=== PATIENT | female | born 1930 | race Caucasian/White ===

== ENCOUNTER 2016-04-04 10:21 | Inpatient (IN) | payer MEDICARE ==
[2016-04-04] VITALS (8 sets, daily range): BP systolic 128–205; BP diastolic 79–127; PULSE 82–113; RESP 18–24; O2SAT 95–100
[~2016-04-04] VITALS: Ht 167.6 cm; Wt 70.2 kg
--- NOTE | 2016-04-04 10:30 | ED.REPORT ---
HPI-General Illness Date of Service Apr 04, 2016 ED Provider: Gilson Noriega MD Pt is an 85 y/o female w/ a hx of acute intermittent porphyria presenting to the ED c/o gradually worsening SOB for 2 weeks. She had cold-like symptoms 6 weeks ago which including cough and SOB. She noticed some "abdominal convulsions " last night which she does not equate to pain. She c/o associated dyspnea on exertion, generalized weakness, hot/cold flashes, nausea. She denies fever, chills, vomiting, chest pain, rash, edema of lower extremity, abnormally colored urine. None of her symptoms today are similar to her episodes of acute intermittent porphyria. She takes no medications on a regular basis. She is a former smoker and has no formal diagnosis of COPD. Nursing Notes Stated Complaint: TROUBLE BREATHING Chief Complaint: Respiratory Distress Nursing Notes Reviewed: Yes Allergies: Coded Allergies: Barbiturates (Verified Allergy, Unknown, 04/04/16) No Active Prescriptions or Reported Meds General Time Seen by MD: 10:28 Chief Complaint Other (SOB) Hx Obtained From: Patient Arrived By: Walk-in Onset Occurred: More than a week ago... (6 wk) Symptom Duration: Since onset Severity: Current: No pain currently Severity: Maximum: No pain Similar Sx Previous: No Past Medical History Past Medical History Acute intermittent porphyria Takes no medications Past Surgical History None reported Smoking History Former Smoker Social History Drug Use: Denies drug use Ambulatory Status Independent Review of Systems Full Review of Systems Constitutional: Reports: Weakness - generalized, Denies: Chills, Fever Respiratory: Reports: Dyspnea on exertion, Shortness of breath, Denies: Non-productive cough Cardiovascular: Denies: Chest pain, Edema GI: Reports: Nausea, Denies: Abdominal pain, Vomiting Female: Denies: Hematuria Endocrine: Reports: Cold intolerance, Heat intolerance Skin: Denies Rash Complete sys rev & neg: except as marked. Physical Exam Vital Signs Vital Signs Date Time Temp Pulse Resp B/P Pulse Ox O2 Delivery O2 Flow Rate FiO2 04/04/16 13:19 88 24 162/94 96 Room Air 04/04/16 10:49 113 100 04/04/16 10:27 36.0 20 205/127 Initial VS: Reviewed, Vital signs abnormal Head / Eyes: Atraumatic, Normocephalic, PERRL ENT: Mucous membranes moist, Conjunctiva normal, No scleral icterus Neck: Supple, Full range of motion Extremities: Vascular intact, Neuro intact, No swelling, No tenderness Skin: Warm, Dry, No cyanosis Neurologic: Alert, Oriented, Nonfocal Psychiatric: Mood/affect normal, Behavior normal, Normal thought content General/Constitutional: Awake, Alert, No acute distress, Cooperative, Not toxic appearing Respiratory / Chest: Atraumatic, Breath sounds = bilat, No respiratory distress , No retractions Lung sound slightly coarse bilaterally Cardiovascular: Heart rate NL, Regular rhythm, Heart sounds NL, No gallop, No murmurs, No rubs, Cap refill not delayed, Peripheral circulation NL Abdomen: Atraumatic, Soft, No guarding, No rebound, No distention, No palpable mass Very mild diffuse tenderness Interpretation & Diagnostics Lab Results Interpretation Result Diagram: 04/04/16 1038 04/04/16 1038 Test 04/04/16 10:38 04/04/16 13:00 04/04/16 13:14 White Blood Count 11.5th/mm3 (3.8-10.1) Red Blood Count 4.42mil/mm3 (3.90-5.20) Hemoglobin 12.3g/dL (12.0-15.6) Hematocrit 39.0% (35.0-46.0) Mean Corpuscular Volume 88.2fL (81-100) Mean Corpuscular Hemoglobin 27.8pg (27.0-35.0) Mean Corpuscular Hemoglobin Concent 31.5% (32.0-37.0) Red Cell Distribution Width 14.7% (12.3-15.4) Platelet Count 261bil/L (150-400) Neutrophils (%) (Auto) 81.5% (40-74) Lymphocytes (%) (Auto) 12.0% (14-46) Monocytes (%) (Auto) 6.0% (4-12) Eosinophils (%) (Auto) 0.1% (0-5) Basophils (%) (Auto) 0.3% (0-3) Prothrombin Time 10.8sec (8.1-12.5) Prothromb Time International Ratio 1.01ratio Sodium Level 140mEq/L (134-144) Potassium Level 4.4mEq/L (3.5-5.2) Chloride Level 104mEq/L (97-108) Carbon Dioxide Level 18mmol/L (18-29) Blood Urea Nitrogen 31mg/dL (8-27) Creatinine 0.87mg/dL (0.57-1.00) Estimat Glomerular Filtration Rate 88mL/min (>59) Glucose Level 146mg/dL (60-99) Calcium Level 8.8mg/dL (8.5-10.1) Magnesium Level 1.9mg/dL (1.6-2.6) Total Bilirubin 0.6mg/dL (0.0-1.2) Aspartate Amino Transf (AST/SGOT) 20U/L (0-50) Alanine Aminotransferase (ALT/SGPT) 11U/L (0-32) Alkaline Phosphatase 81U/L (25-165) Troponin T 0.017ug/L (0.0-0.011) Pro-B-Type Natriuretic Peptide 3114pg/mL (0-738) Total Protein 7.8g/dL (6.4-8.4) Albumin 3.6g/dL (3.4-5.0) Urine Legionella pneumophilia Ag Negative (Negative) Urine Color Straw (YELLOW) Urine Appearance Hazy (CLEAR,HAZY) Urine pH 5.5 (5.0-8.0) Urine Specific [place] 1.030 (1.003-1.035) Urine Protein Tracemg/dL (NEG,TRACE) Urine Glucose (UA) Negativemg/dL (NEGATIVE) Urine Ketones Tracemg/dL (NEGATIVE) Urine Occult Blood Trace (NEGATIVE) Urine Nitrite Negative (NEGATIVE) Urine Bilirubin Negative (NEGATIVE) Urine Urobilinogen Normalmg/dL (NORMAL) Urine Leukocyte Esterase Moderate (NEGATIVE) Urine RBC 0-2/hpf (0-2) Urine WBC 0-5/hpf (0-5) Urine Epithelial Cells Occasional/hpf (NONE-MOD) Urine Crystals None seen (NONE SEEN) Urine Bacteria Few/hpf (NONE-FEW) Urine Hyaline Casts None/lpf (NONE) Urine Granular Casts Occasional (NONE SEEN) Urine Waxy Casts None seen (NONE SEEN) Urine Red Blood Cell Casts None seen (NONE SEEN) Urine White Blood Cell Casts None seen (NONE SEEN) Urine Mucus Present (None Seen) Urine Trichomonas None seen (NONE SEEN) Urine Yeast None (NONE SEEN) Urinalysis Comment None Urine Culture Reflexed Indicated ECG Interpretation ECG Interpretation: Sinus rhythm rate 97 Occasional PACs No prior for comparison Time: 11:35 Interpreted by: ED physician Normal ECG Interpretation: Normal sinus rhythm, No acute ischemic changes, Normal axis, Normal intervals X-Ray Chest Interpretation Chest Xray Interpretation: IMPRESSION: Mild atypical pneumonia. Dictated by: Lew Ghotra M.D. on 04/04/2016 at 11:38 Approved by: Lew Ghotra M.D. on 04/04/2016 at 11:38 View: Portable, AP & lat Interpretation / Wet Read by: Interpret - Radiologist Re-Eval/Medical Decision Med Decision/Clinical Course Pt is an 85 y/o female w/ a hx of acute intermittent porphyria presenting to the ED c/o gradually worsening SOB for 2 weeks. She had cold-like symptoms 6 weeks ago which including cough and SOB. She noticed some "abdominal convulsions " last night which she does not equate to pain. She c/o associated dyspnea on exertion, generalized weakness, hot/cold flashes, nausea. She has most recently noticed some dark colored urine. Upon arrival she is afebrile with stable vital signs and examination as above. Meds given: IV fluids, Zofran Labs notable as below: CBC: Leukocytosis of 11.5, stable HCT CMP: BNP of 3114, BUN of 31 and creatinine of 0.87 Troponin: mildly elevated at 0.017 UA positive for: leukocytes, nitrites, ketones, trace blood Chest x-ray: possible mild atypical pneumonia per radiology assessment though in my assessment I am unconvinced of pneumonia given the overall clinical picture. Overall presentation is somewhat atypical and confounding. I am unclear as to the degree to which her acute intermittent porphyria may be a continued factor though she does report that her urine has been darker in color and that her symptoms are somewhat similar to previous exacerbations. Uropoprhobilinogen's have been sent and are pending at this time. Of note troponin was obtained on this patient and is mildly elevated though she does have prerenal azotemia which may explain her elevated troponin. That being said her BNP is additionally elevated raising concern for cardiogenic process as well. At this time, I feel that the patient requires additional workup both for cardiogenic causes of her shortness of breath as well as further workup of possible acute exacerbation of her intermittent porphyria. She was discussed with the medical hospitalist and she was transferred to the [facility] for further workup in stable condition. Time of Eval: 11:46 Patient Status: Condition improved, Moderate relief Re-Evaluation/Progress Note: Pt rechecked. Pt informed of need for admission for further cardiac workup. Pt understands and agrees with plan for admission. All questions addressed. Counseled Regarding: Diagnosis, Lab results, Need for admission Discharge & Departure Primary Impression: Elevated troponin Additional Impressions: Shortness of breath Acute intermittent porphyria Elevated brain natriuretic peptide (BNP) level Disposition: ADMITTED TO HOSPITAL Discharge Condition All VS Reviewed: Yes Condition: Stable Referrals: [facility] Scribe Attestation Portions of this note were transcribed by Marvin Daugherty. I, Dr. Noriega personally performed the history, physical exam and medical decision-making; I reviewed and confirmed the accuracy of the information in the transcribed note. Signed by Katy Koch, 04/04/16 - 1130 Gilson Noriega MD Apr 04, 2016 10:30 MARVIN DAUGHERTY Apr 04, 2016 10:46
[2016-04-04] MEDS ORDERED: 0.9% Sodium Chloride 1,000 ML IV ONE (10:50)
[2016-04-04 11:03] LABS: BASOPHILS % (AUTO) 0.3 % (0-3); EOSINOPHILS % (AUTO) 0.1 % (0-5); Mean Corpuscular Hemoglobin 27.8 pg (27.0-35.0); Mean Corpuscular Volume 88.2 fL (81-100); NEUTROPHILS % (AUTO) 81.5 % (40-74); Platelet Count 261 bil/L (150-400)
[2016-04-04 11:09] LABS: INR 1.01 ratio
[2016-04-04 11:16] LABS: TROPONIN T 0.017 ug/L (0.0-0.011)
[2016-04-04 11:27] LABS: Magnesium 1.9 mg/dL (1.6-2.6)
--- NOTE | 2016-04-04 11:39 | DRSVH ---
PROCEDURE: X-RAY CHEST, TWO VIEWS ([id number]) INDICATIONS: sob TECHNIQUE: 2 views of the chest were acquired. COMPARISON: None. FINDINGS: Surgical changes and devices: None. Lungs and pleura: No pleural effusions or pneumothorax. Mild patchy diffuse interstitial pulmonary o pacity. Mediastinum: Mediastinal contours are normal. Heart size is normal. Bones and chest wall: No suspicious bony abnormalities. Soft tissues appear unremarkable. IMPRESSION: Mild atypical pneumonia. Dictated by: Lew Ghotra M.D. on 04/04/2016 at 11:38 Approved by: Lew Ghotra M.D. on 04/04/2016 at 11:38
[2016-04-04 13:33] LABS: APPEARANCE,URINE HAZY (CLEAR,HAZY); COLOR,URINE STRAW (YELLOW); OCCULT BLOOD,URINE TRACE (NEGATIVE); PH,URINE 5.5 (5.0-8.0); UROBILINOGEN,URINE NORMAL (NORMAL)
[2016-04-04] MEDS ORDERED: Azithromycin Inj 500 MG in Dextrose 5% w/Vial Mate 250 ML IV ONE (14:05)
[2016-04-04] MEDS ORDERED: levoFLOXacin Inj 750 MG in IV Premix 1 EACH IV ONE (14:20)
[2016-04-04] MEDS ORDERED: 0.9% Sodium Chloride 500 ML IV ONE (14:20)
--- NOTE | 2016-04-04 15:34 | NUR ---
Admit nurse: Pt denies taking any home meds on a regular basis, "I take a vitamin once in a while." Flu shot given in Nov, admit completed. Pt speaking in full sentences, on RA, reports that breathing is more comfortable in a sitting position. Reports "too much milk makes me sick."
[2016-04-04] MEDS ORDERED: Albuterol-Ipratropium 3 mL Inhalation Solution NEB PRN (16:05)
--- NOTE | 2016-04-04 16:28 | PCM.HPMED ---
Subjective Date of Service Apr 04, 2016 Primary Provider: Admitting Physician: Paulo Jackson MD Primary Care Physician: Tai Attending Physician: Paulo Jcakson MD Chief Complaint: Progressive worsening of cough and difficulty breathing History of Present Illness: 85-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 Patient stated that she is living independently, only takes vitamin intermittently. Patient started noticing cold-like symptoms 6 weeks ago, had dry cough badly, which continued intermittently with minimal white sputum. Patient sometimes have nausea but never vomited. Patient thinks that her symptoms gradually got worse and last week, patient started noticing difficulty breathing with cough to the point that last night, patient was really short of breath, noticing her abdomen was up-and-down with labored breathing, noticing cold and hot sensation alternatively, did not take the temperature. Throughout his course, patient did not seek for any medical help, denied weight loss, but gradually became very weak, denied night sweats or fever. Patient stated that last time she had porphyria attack was more than 20 years ago in which she normally had black urine and really severe burning on urination, which was not present at this time. Therefore she did not think that it was Porphyria attack. Patient also had poor appetite, however denied any abdominal pain. For the past 2-3 weeks, he should also have felt lightheaded on sudden movement, denied any fall. In ED VS initially BP 200/127, 113, afebrile, 96 on RA, CXR showed diffuse interstitial infiltrate bilaterally. Labs were notable for mild leukocytosis, mild troponin, elevated proBNP. During the encounter, patient looked comfortable, speaking in full sentences, alert and oriented fully, very pleasant but looked weak. Denied any difficulty breathing, cough or chest pain, palpitation Review of Systems: Pertinent positives as noted in history of present illness. All other systems were reviewed and are negative Allergies Coded Allergies: Barbiturates (Verified Allergy, Unknown, 04/04/16) Home Medications [id number] vitamins intermittently PMH Patient stated that [facility] studied extensively with her and her daughter regarding Porphyria. stated she knows that there are 3 kinds of porphyria, hers was one that nothing to do with sunshine Denied heart murmur Surgical History Cervical cancer status post hysterectomy Breast cancer status post radical mastectomy, LN dissection Appendectomy Family History Daughter also has Porphyria dad of heart attack Mother had brain aneurysm Social History Hx Alcohol Use: No Hx Substance Use: No Smoking Status: Former Smoker Exam Vital Signs Vital Sign - Last Date Time Temp Pulse Resp B/P Pulse Ox O2 Delivery O2 Flow Rate FiO2 04/04/16 15:43 37.0 93 18 163/109 96 Room Air Exam NAD, comfortably laying down on the bed no JVD, MMM, no LAD Tachycardia irregular, nl s1, s2. gr3 ejection systolic M best heard at RUSB Findings crackles diffusely S,ND,NT,normoactive BS+ warm, no edema, pulses 2/2 Lab and Diagnostics Result Diagram: 04/04/16 1038 04/04/16 1038 Assessment & Plan 85-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 Acute, active #dyspnea, POA, ddx: atypical infectious process, interstitial lung dz, malignancy with lymphagetic spread, pt is protecting airways -We will do conventional pectus workups first: BCX, flu swab, strep/legionella Ag, Quantiferon God. -start Levaquin 750mg qd, consider Doxycycline for atypical infection, -will not start steroid yet given no clear clinical picture -ordered TTE given elevated BNP, systolic M, pt seemed mildly dehydrated given poor appetite, exam, bun/cr will only give 500cc today, please decide vol status tomorrow -keep on telemetry, -consider pulmonary, ID consult -consider getting HRCT contrast if renal function stable tomorrow -O2 supplement target >95% #hypertension, POA, likely undiagnosed, will start diltiazem 30 bid given acute lung process, control HR. 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
--- NOTE | 2016-04-04 17:31 | DRSVH ---
[facility] [address] [place] [address] Echocardiogram Report Name: JAYDEN FELIX Study Date: 04/04/2016 Height: 66 in Hospital Exam Location: [facility] Weight: 150 lb Gender: Female BSA: 1.8 m2 : 1930 Age: 85 yrs Reason For Study: SOB Ordering Physician[facility] Interpretation Summary Left ventricular systolic function is normal without focal wall motion abnormalities with the ejection fraction is estimated to be 70-75%. The left ventricle is normal in size with diastolic parameters suggesting a pseudonormalization pattern, consistent with elevated filling pressures. The right ventricle is normal in size and function. There is moderate-severe pulmonary hypertension with the right ventricular systolic pressure estimated at 65 mmHg assuming a right atrial pressure of 3 mm Hg. The left atrium is mildly dilated and the right atrium is borderline dilated. There is moderate mitral annular calcification. The mitral valve leaflets appear mildly thickened, but open well with probable moderate mitral valve prolapse of the posterior mitral valve leaflet producing probable moderately severe to severe mitral regurgitation with an eccentric jet of regurgitation that is directed anteromedially. Consider MADHU to better assess mechanism and severity of mitral regurgitation if clinically appropriate. There is moderate tricuspid regurgitation but no other significant valvular heart disease. The patient was in sinus tachycardia with heart rates between 95-110 bpm and frequent PACs during the exam. Procedure: A two-dimensional transthoracic echocardiogram with color flow and Doppler was performed. The study quality was technically adequate. Imaging artifact noted in the apical views. There is no prior echocardiogram noted for this patient. The patient was in sinus tachycardia with heart rates between 95-110 bpm during the exam. The patient had frequent PACs during the exam. Left Ventricle: The left ventricle is normal in size. There is normal left ventricular wall thickness. Proximal septal thickening is noted. Left ventricular systolic function is normal without focal wall motion abnormalities. The ejection fraction is estimated to be 70-75%. Assessment of diastolic parameters suggests a pseudonormalization pattern, consistent with elevated filling pressures. Right Ventricle: The right ventricle is normal in size and function. TAPSE measures at 26mm. Atria: The left atrium is mildly dilated. The right atrium is borderline dilated. The interatrial septum is intact with no evidence for an atrial septal defect. Interatrial septal thickening is noted. Mitral Valve: There is moderate mitral annular calcification. The mitral valve leaflets appear mildly thickened, but open well. There is moderate mitral valve prolapse. There is prolapse of the posterior mitral valve leaflet(s). MP.7mmHg. There is moderate to severe mitral regurgitation. There is an eccentric jet of mitral regurgitation that is directed anteromedially. Consider MADHU to better assess mechanism and severity of mitral regurgitation if clinically appropriate. Aortic Valve: The aortic valve is trileaflet. There is mild aortic valve sclerosis. The aortic valve is mildly calcified. Leaflet mobility is minimally reduced. There is no hemodynamically significant valvular aortic stenosis. No aortic regurgitation is present. Tricuspid Valve: The tricuspid valve is normal in structure and function. There is moderate tricuspid regurgitation. There is moderate-severe pulmonary hypertension. The right ventricular systolic pressure is estimated at 65 mmHg assuming a right atrial pressure of 3 mm Hg. Pulmonic Valve: The pulmonic valve is normal in structure and function. There is trace pulmonic regurgitation. There is no other significant valvular heart disease. Great Vessels: The aortic root is normal size. The dimensions of the ascending aorta are normal. The pulmonary artery is normal size. The IVC is of normal diameter and collapses greater than 50% with a sniff. This suggests a low right atrial pressure of 3 mm Hg. Pericardium/ Pleura There is no pericardial effusion. There is no pleural effusion. MMode/2D Measurements & Calculations LVIDd: 4.5 cm LA dimension: 4.2 cm RA long axis LVOT diam LVIDs: 2.9 cm FS: 34.7 % LA A2 area: 18.0 cm RA area AoV Opening EPSS: 0.60 cm LA A4 area: 26.1 cm IVSd: 1.2 cm LA length (vol): 5.9 cm: 18.7 cm Ao root diam LVPWd: 0.99 cm LA vol: 68.0 ml RA vol LA vol index : 52.4 ml Aortic Jxn RA : 29.6 mm2 asc Aorta IVC diam: 2.1 cm Diam: 2.9 cm LV modi. diameter/BSA LV sys. diameter/BSA (cm/m^2): 2.5 (cm/m^2): 1.6 Doppler Measurements & Calculations Ao V2 max MV E max christiano MV E/A: 1.3 TR max christiano : 198.5 cm/sec : 163.8 cm/sec Med Peak E' Christiano : 393.0 cm/sec Ao max P.8 mmHg MV A max christiano TR max PG Ao mean P.9 mmHg : 123.7 cm/sec E/E' med: 29.9 : 61.8 mmHg LVOT Max Christiano Pulm A Revs Dur PA V2 max : 119.4 cm/sec MVA(VTI): 1.6 cm2 : 141.8 cm/sec MV A dur PA mean PG REINALDO(I,D): 1.9 cm : 0.15 sec : 2.7 mmHg sev ratio: 0.53 MV V2 mean Ao V2 mean LV V1 max PG PA V2 mean : 107.0 cm/sec : 131.1 cm/sec : 69.3 cm/sec MV mean P.7 mmHg Ao V2 VTI: 37.1 cm LV V1 VTI PA pr(Accel) MV V2 VTI: 44.5 cm REINALDO(V,D): 2.2 cm2 : 19.5 cm : 52.8 mmHg MV dec time: 0.18 sec REINALDO indexed to BSA Pulm A Revs Dur - MV A (cm^2/m^2): 1.1 Dur: -0.02 msec Reading Physician:05:30 PM
--- NOTE | 2016-04-04 19:37 | NUR ---
arrived to [facility]/antibiotics Pt arrived to [facility] room 3007 from ER at 1500. Pt denies pain but reports feeling weak and unsteady and "glad to be at the hospital", SOB with exertion, O2 sats 96% on room air. BC drawn by lab and antibiotics infused per orders. Oriented to room and call light. Call light placed in reach and instructed on use, pt verbalized understanding. Tele placed and SR 93. Pt has hx of R mastectomy, NO BP OR LAB DRAW TO R ARM, posted signs behind bed and on white board and placed arm band on R arm that states no lab draw/BP on R arm. Pt updated on plan of care. Care continues.
[2016-04-04] MEDS: Heparin 5,000 Unit/mL Inj SUBQ SCH (20:44)
[2016-04-05] VITALS (9 sets, daily range): BP systolic 120–166; BP diastolic 80–104; PULSE 80–110; RESP 16–22; O2SAT 91–97
--- NOTE | 2016-04-05 02:48 | NUR ---
mobility patient able to walk to bathroom sba. mild dyspnea. non productive cough. supportive care given.
[2016-04-05] MEDS: levoFLOXacin Inj 750 MG in IV Premix 1 EACH IV SCH (07:53)
[2016-04-05] MEDS: Heparin 5,000 Unit/mL Inj SUBQ SCH ×2 (07:56→21:02)
[2016-04-05 08:17] LABS: Mean Corpuscular Hemoglobin 27.6 pg (27.0-35.0); Mean Corpuscular Volume 88.9 fL (81-100)
[2016-04-05] MEDS ORDERED: DEXTROSE 5% IV SCH (08:30)
[2016-04-05] MEDS ORDERED: MATE IV SCH (08:30)
[2016-04-05] MEDS ORDERED: AZITHROMYCIN IV SCH (08:30)
--- NOTE | 2016-04-05 14:35 | NUR ---
Social Work-initial assessment: Data:See initial assessment. Pt is a 85 y/o female who was admitted on 04/04/16 for elevated trop per H&P. Pt's insurance is [facility] and PCP is Not listed. EMR Reviewed. Pt's readmission score is 1. BRIDGER met with pt at bedside to discuss discuss discharge planning, SW role explained. Pt is alert and oriented x3. Pt resides at home alone in [place] where she remains independent with ADLS. Pt does not use any DME and drives. Pt has no HH or SNF history. Pt has no occupational health professional care or VA benefits. Pt states she has completed DPOA/ advanced directive paperwork, SW encouraged pt to bring a copy into the hospital. Pt has no PCP, interested in information, which BRIDGER has provided. Pt states she feels very weak, SW to discuss PT evaluation with MD. SW provided phone number and plan on the board in room. Pt's grandson to provide transport home. SW will continue to follow. Assessment:Pt who would benefit from PT evaluation. Plan:Pt to likely discharge home when medically stable. Pt to benefit from PT evaluation. SW will continue to follow. AMELIA Hanna Addendum: 04/05/16 at 1439 by ROLAND BARBOUR Amended: Links added.
--- NOTE | 2016-04-05 17:42 | PCM.PNMED ---
Subjective Date of Service Apr 05, 2016 Subjective Patient was examined at bedside today. Patient denies any chest pain, nausea, vomiting, diarrhea. Patient reports shortness of breath and lethargy. Exam Vital Signs Vital Sign - Last Date Time Temp Pulse Resp B/P Pulse Ox O2 Delivery O2 Flow Rate FiO2 04/05/16 16:50 36.9 91 16 145/91 96 Room Air Intake and Output 04/04/16 04/04/16 04/05/16 Cumulative From/Thru 15:00 23:00 07:00 04/04/16 10:27 - 04/05/16 06:03 Intake Total 1000 ml 640 ml 100 ml 1740 ml Output Total 425 ml 425 ml Balance 1000 ml 640 ml -325 ml 1315 ml Intake Oral 100 ml 100 ml IV Total 1000 ml 640 ml 1640 ml Output Urine Total 425 ml 425 ml # Voids 1 1 Exam Physical Exam: GEN: Patient was awake, alert, responding appropriately to questions HEENT: PERRLA, EOMI, Neck soft supple, trachea midline, nomocephalic/atraumatic CV: +S1/S2, RRR, positive systolic murmurs auscultated Respiratory: Coarse breath sounds, no wheezes, rales, rhonchi GI: +bowel sounds x4, soft, compressible, non TTP EXT: no c/c/e Neuro: CN II-XII grossly intact Psych: mood and affect were appropriate IVs and Medications Medications Reviewed: Medications were reviewed in detail Medications Current Medications Heparin Sodium (Porcine) 5000 unit 5,000 unit Q12 SUBQ Last administered on 04/05 07:56; Admin Dose 5,000 UNIT; Start 04/04/16 at 20:30 Azithromycin 250 mg/Dextrose/Water 250 ml @ 250 mls/hr Q24 IV; Start 04/05/16 at 08:30; Stop 04/05/16 at 08:30; Status DC Levofloxacin/ Dextrose/Premix 150 ml @ 100 mls/hr Q24 IV Last administered on 07:53; Admin Dose 100 MLS/HR; Start 04/05/16 at 08:30 Amlodipine Besylate 5 mg DAILY PO; Start 04/05/16 at 08:30; Stop 04/05/16 at 08: 30; Status DC Diltiazem HCl 30 mg BID PO Last administered on 1/28/17at 07:56; Admin Dose 30 MG; Start 04/04/16 at 16:30 Albuterol/ Ipratropium 3 ml Q4H PRN NEB; Start 04/04/16 at 16:05 Lab and Diagnostics Result Diagram: 04/05/16 0810 04/05/16 0810 Assessment & Plan 85-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 Acute, active Dyspnea, POA, ddx: atypical infectious process, interstitial lung dz, malignancy with lymphagetic spread, -We will do conventional pectus workups first: BCX negative 24 hours, flu swab negative, strep/legionella Ag negative, patient is positive for rhinovirus/ enterovirus -Continue Levaquin 750mg qd, patient is currently responding well will consider Doxycycline for atypical infection, if patient's symptoms do not resolve -will not start steroid yet given no clear clinical picture -ordered TTE given elevated BNP results pending, systolic M, pt seemed mildly dehydrated given poor appetite, exam, bun/cr will only give 500cc today, please decide vol status tomorrow -keep on telemetry, -Consult infectious disease -consider getting HRCT contrast if renal function stable tomorrow -O2 supplement target >92% hypertension, POA, likely undiagnosed, -Continue diltiazem 30 bid given acute lung process, control HR. systolic M, likely severe valvular dz in the setting of uncontrolled HTN, follow up with TTE. -Follow up echo chronic, stable #hx of breast CA, cervical CA, remote, seemed in remission dvt ppx: HSQ diet: general dispo: Patient is currently responding well to treatment. We will continue to follow the patient and appreciate any recommendations from infectious disease. Full Code for now, pt never thought about this in the past, VTE Mechanical Devices: Venous Foot Pump Nicolasa Mobley DO Apr 05, 2016 17:42
--- NOTE | 2016-04-05 18:23 | NUR ---
Pain/shift pleasant and compliant pt, able to make needs known. Uses call light appropriately. c/o back pain states it's d/t being in bed. Kpad order recd and applied. pt states it's effective. Pt with dx of Porphyria-MD working on proper pain meds. IV abx infused for pneumonia, pt tolerated it well. ID consult pending. Tele SR 70-90 with PACs. Bed in low position, call light in reach, will continue to monitor.
[2016-04-06] VITALS (10 sets, daily range): BP systolic 107–146; BP diastolic 72–92; PULSE 79–104; RESP 18–21; O2SAT 95–98
--- NOTE | 2016-04-06 05:42 | NUR ---
New onset A-Fib Pt have a new onset of A-fib, now intermittently A-fib to sinus rhythm per monitor moshe. MD was notified and no new orders given. Pt denies chest pain. But complains of very mild sob. Currently on RA and has been tolerating well. Hourly rounding done, bed is in lowest position and call light within reach,
[2016-04-06 05:56] LABS: Mean Corpuscular Hemoglobin 27.9 pg (27.0-35.0); Mean Corpuscular Volume 88.3 fL (81-100)
[2016-04-06 08:22] LABS: Creatine Kinase 66 U/L (21-215)
--- NOTE | 2016-04-06 09:02 | NUR ---
JUAN signed. AMELIA Hanna
[2016-04-06] MEDS: levoFLOXacin Inj 750 MG in IV Premix 1 EACH IV SCH (09:06)
[2016-04-06] MEDS: Heparin 5,000 Unit/mL Inj SUBQ SCH ×2 (09:09→20:31)
[2016-04-06] MEDS ORDERED: levoFLOXacin Inj 250 MG in IV Premix 1 EACH IV SCH (10:55)
--- NOTE | 2016-04-06 15:03 | PCM.PNMED ---
Subjective Date of Service Apr 06, 2016 Subjective Patient was examined at bedside today. Patient denies any chest pain, but states that she does have some feelings of "not right" in her body. Overnight nursing reported that the patient converted from sinus rhythm into A. fib. This is a new onset of A. fib patient. Patient also complains of back pain secondary to deconditioning and also complains of difficulty swallowing. Exam Vital Signs Vital Sign - Last Date Time Temp Pulse Resp B/P Pulse Ox O2 Delivery O2 Flow Rate FiO2 04/06/16 13:48 37.0 85 20 107/72 96 Room Air Intake and Output 04/05/16 04/05/16 04/06/16 Cumulative From/Thru 15:00 23:00 07:00 04/04/16 10:27 - 04/06/16 06:25 Intake Total 756 ml 318 ml 2814 ml Output Total 775 ml 1200 ml Balance 756 ml -457 ml 1614 ml Intake Oral 756 ml 318 ml 1174 ml IV Total 1640 ml Output Urine Total 775 ml 1200 ml # Voids 2 3 # Bowel Movements 0 0 Exam Physical Exam: GEN: Patient was awake, alert, responding appropriately to questions HEENT: PERRLA, EOMI, Neck soft supple, trachea midline, nomocephalic/atraumatic CV: +S1/S2, irregular, positive systolic murmur auscultated Respiratory: CTAB, no wheezes, rales, rhonchi GI: +bowel sounds x4, soft, compressible, non TTP EXT: no c/c/e Neuro: CN II-XII grossly intact Psych: mood and affect were appropriate IVs and Medications Medications Reviewed: Medications were reviewed in detail Medications Current Medications Heparin Sodium (Porcine) 5000 unit 5,000 unit Q12 SUBQ Last administered on 04/06 09:09; Admin Dose 5,000 UNIT; Start 04/04/16 at 20:30 Azithromycin 250 mg/Dextrose/Water 250 ml @ 250 mls/hr Q24 IV; Start 04/05/16 at 08:30; Stop 04/05/16 at 08:30; Status DC Levofloxacin/ Dextrose/Premix 150 ml @ 100 mls/hr Q24 IV Last administered on 09:06; Admin Dose 100 MLS/HR; Start 04/05/16 at 08:30; Stop 04/06/16 at 10:55; Status DC Amlodipine Besylate 5 mg DAILY PO; Start 04/05/16 at 08:30; Stop 04/05/16 at 08: 30; Status DC Diltiazem HCl 30 mg BID PO Last administered on 04/06/16 09:09; Admin Dose 30 MG; Start 04/04/16 at 16:30 Albuterol/ Ipratropium 3 ml 3 ml Q4H PRN NEB; Start 04/04/16 at 16:05 Levofloxacin/ Dextrose/Premix 50 ml @ 33.333 mls/ hr Q24H IV; Start 04/06/16 at 10:55; Stop 04/06/16 at 11:12; Status DC Docusate Sodium 100 mg BID PRN PO Last administered on 04/06/16 11:07; Admin Dose 100 MG; Start 04/06/16 at 11:00 Acetaminophen 650 mg 650 mg Q4H PRN PO Last administered on 04/06/16 11:07; Admin Dose 650 MG; Start 04/06/16 at 11:00 Levofloxacin/ Dextrose/Premix 50 ml @ 33.333 mls/ hr Q24H IV; Start 04/07/16 at 08:30 Lab and Diagnostics Result Diagram: 04/06/16 0535 04/06/16 0535 Assessment & Plan 85-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 Acute, active Dyspnea, POA, ddx: atypical infectious process, interstitial lung dz, malignancy with lymphagetic spread, - BCX negative 24 hours, flu swab negative, strep/legionella Ag negative - patient is positive for rhinovirus/enterovirus -Continue Levaquin 750mg qd, patient is currently responding well will consider Doxycycline for atypical infection, if patient's symptoms do not resolve -will not start steroid yet given no clear clinical picture -keep on telemetry, -Infectious disease consulted -O2 supplement target >92% New-onset atrial fibrillation -Heart rate is currently controlled -Continue diltiazem 30 by mouth twice a day -Consult cardiology Dr. Mello Elevated Troponin's -Patient had an elevated troponin at 0.017 upon admission however it is currently trending down at 0.013. This is most likely a troponin leak in the setting of an elevated creatinine the patient's acute kidney injury is resolving. CK-MB was within normal limits. Elevated blood glucose -Hemoglobin A1c pending Hypertension, POA, likely undiagnosed, -Continue diltiazem 30 bid given acute lung process, control HR. systolic M, likely severe valvular dz in the setting of uncontrolled HTN, follow up with TTE. Echo results: Estimated ejection fraction is 70-75%, left ventricular systolic function is normal without focal wall motion abnormalities, left ord ventricle is normal in size with diastolic parameters suggesting a pseudonormalization pattern consistent with elevated filling pressures. Back pain -Tylenol 650 when necessary pain -Physical therapy consulted -Consider OMT chronic, stable #hx of breast CA, cervical CA, remote, seemed in remission dvt ppx: HSQ diet: general dispo: Patient's infection is currently responding to antibiotic therapy as her white blood cell count is normal at 8.0. We will continue to follow up with infectious disease recommendations. Patient has a new onset of A. fib patient is currently rate controlled will defer to cardiology for further recommendations. VTE Mechanical Devices: Venous Foot Pump Nicolasa Mobley DO Apr 06, 2016 15:03
[2016-04-06 19:34] LABS: Magnesium 1.9 mg/dL (1.6-2.6)
[2016-04-07] VITALS (9 sets, daily range): BP systolic 112–149; BP diastolic 72–102; PULSE 84–105; RESP 18–20; O2SAT 97–99
[2016-04-07 06:03] LABS: Mean Corpuscular Hemoglobin 27.6 pg (27.0-35.0); Mean Corpuscular Volume 87.7 fL (81-100)
--- NOTE | 2016-04-07 06:33 | NUR ---
Uneventful pt denies chest pain, sob, n/v and abd discomfort. Pt is NPO since midnight for stress test. Hourly rounding done, Telemetry A-fib per monitor moshe. Will continue to monitor.
[2016-04-07] MEDS ORDERED: 0.9% Sodium Chloride 250 ML ONE (08:34)
[2016-04-07] MEDS: Heparin 5,000 Unit/mL Inj SUBQ SCH ×2 (08:50→21:22)
[2016-04-07] MEDS: levoFLOXacin Inj 250 MG in IV Premix 1 EACH IV SCH (08:51)
--- NOTE | 2016-04-07 10:04 | CONS ---
[address] [address] CONSULTATION REPORT PATIENT: ARMAND FELIX : 1930 MR#: [id number] ADMIT: 04/04/2016 JOB ID: [id number] DATE OF SERVICE: 04/07/2016 HISTORY OF PRESENT ILLNESS: The patient is a delightful 85-year-old female with a history of porphyria, breast cancer status post radical mastectomy in 1979, cervical cancer status post hysterectomy in 1980. She reported to the emergency department with shortness of breath. Decreased exercise tolerance and weakness. She was hypertensive as well. Labs revealed a mild troponin leak and an elevated BNP. She tells me during the consultation that she has been experiencing exertional chest pain and that she cannot walk to the bathroom in her hospital room without getting short of breath. She also reports to me that prior to this recent episode of shortness of breath and decreased exercise tolerance she had not been to the doctor in about 30 years. PAST MEDICAL HISTORY: 1. Porphyria. 2. Breast cancer in 1979. 3. Cervical cancer in 1980. PAST SURGICAL HISTORY: 1. Appendectomy. 2. Radical mastectomy in 1979. 3. Hysterectomy in 1980. MEDICATIONS: 1. Levofloxacin. 2. Diltiazem. 3. Albuterol. 4. Acetaminophen. It should be noted that she has no home medications. FAMILY HISTORY: Father apparently of a heart attack and her mother of a brain aneurysm. Otherwise family history is unremarkable. SOCIAL HISTORY: She smoked for 40 years, and she had a 1 pack per day history. She quit 15 years ago. It should also be noted she drinks less than 7 drinks a week. REVIEW OF SYSTEMS: She reports that she experiences mild chest pain with exertion, dyspnea on exertion, dizziness, orthopnea, and dyspnea when she is lying flat. Otherwise 12 system review is negative. PHYSICAL EXAMINATION: Blood pressure is 107/72, pulse is 85, respirations are 20, SpO2 is 96% on room air. Temperature is 37. She is alert and awake and appears to be in no distress. She is well nourished and well developed. Evaluation of the neck reveals no JVP. Auscultation of the lungs reveals that she has rales in the bases bilaterally. Auscultation of the heart reveals that she has a normal S1 and S2, however there is a systolic murmur at the apex of the heart. Palpation of the abdomen reveals that her abdomen is soft and nontender. There are no bulges or palpable masses. Evaluation of the extremities reveals that she has a good dorsalis pedis and posterior tibialis pulses bilaterally. There is no peripheral edema. She is alert and oriented to time, person, and place. Her mood is appropriate. LABORATORIES: White blood count 11.5, red blood count 4.42, hemoglobin 12.3, hematocrit 39. INR is 1.1. Sodium is 141, potassium 4.7, chloride is 106, carbon dioxide is 21. BUN is 21, creatinine is 0.89 and GFR is 86. Glucose is 115. Calcium is 8.6. Magnesium 1.9. Total bilirubin 0.7. AST 25, ALT 18, alk phos is 69. The last troponin was 0.013. BNP was 3114. Triglycerides are 88, cholesterol 142, LDL cholesterol 73.4. Chest x-ray revealed diffuse interstitial opacities. Echocardiogram revealed: 1. Grade 2 diastolic dysfunction. 2. EF of 70% to 75%. 3. Moderate to severe pulmonary hypertension. 4. RVSP of 65 mmHg. 5. Moderate to severe mitral regurgitation. 6. Moderate tricuspid regurgitation. EKG revealed atrial fibrillation and no other remarkable findings. ASSESSMENT AND PLAN: 1. Symptoms of heart failure: The patient is a delightful 85-year-old female with a history of prophyria, breast cancer status post radical mastectomy in 1979, cervical cancer status post hysterectomy in 1980. She reported to the emergency department with shortness of breath, decreased exercise tolerance, and weakness. She was hypertensive as well. Labs revealed a mild troponin leak and an elevated BNP. She tells me that she has been experiencing exertional chest pain and that she cannot walk to the bathroom in her hospital room without getting short of breath. I notice that she gets somewhat short of breath readjusting herself in her hospital bed. Auscultation of the lungs reveals rhonchi bilaterally particularly in the bases. There is a systolic murmur at the apex of the heart. There is no peripheral edema. Echocardiogram revealed grade 2 diastolic dysfunction, EF of 70% to 75%, [id number] mitral valve regurgitation, and severe pulmonary hypertension. Given the exertional chest pain particularly in light of symptoms of heart failure she needs to undergo further risk stratification for ischemic heart disease. As such, I will order a pharmacological nuclear imaging study. If indicated based on the results of that study, she might be a candidate for an angiogram with possible PCI. 2. Atrial fibrillation. We do not know if this is new onset or not. She may have had paroxysmal or persistent atrial fibrillation for some time. CHARDS-VASc score is 4, which gives her a yearly stroke risk of 4%, if she does not receive anticoagulation therapy. 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 Our strategy for treatment of this condition will likely be rate control.
--- NOTE | 2016-04-07 13:17 | NUR ---
Social Work-continued d/c planning: Data:EMR reviewed. Pt is on day 3 of hospitalization for elevated trop per H&P. Pt is several days out from discharge. Pt to have stress test done today. PT and ST are both pending.Pt does not have PCP . SW called [facility] and got pt's establishment of care appointment for at 315pm. [facility] to call SW back with hospital follow up appointment. SW to follow up with pt after procedure to further discuss. SW will continue to follow. Assessment:Pt who is independent at baseline. Plan:Pt to likely discharge home when medically stable. PT and ST are both pending. [facility] to follow up with SW for hospital follow up appointment. Establishment of care appointment scheduled for at 315pm. SW will continue to follow. AMELIA Hanna
--- NOTE | 2016-04-07 14:00 | NUR ---
OFF UNIT Pt returned to [facility] unit, room 3007, post stress test at just after ~1300. Tele replaced. Pt A&OX3, MOYA, IV SL, Denies pain and stating 'this is the best i've felt since i've been here.' No acute issues - tired after stress test, resting. Care continues.
--- NOTE | 2016-04-07 14:42 | DRSVH ---
PROCEDURE: 1 DAY PHARMACOLOGICAL STRESS TEST Rest and pharmacological stress myocardial perfusion SPECT with gated imaging and ejection fraction RADIOPHARMACEUTICAL: 8.4 mCi Tc-99m tetrafosmin IV at rest and 23.8 mCi Tc-99m tetrafosmin IV at peak effect of pharmacological stress. A [id number]-fhlopufw was performed. INDICATIONS: 85 year-old woman with chest pain and atrial fibrillation. The patient has hypertension and family history as risk factors for coronary artery disease. TECHNIQUE: Radiopharmaceutical was injected at peak stress test, and also at rest. SPECT images wer e obtained. SPECT myocardial perfusion images were displayed in short axis, horizontal long axis, an d vertical long axis views. Gated images were reviewed using Grade[employer] software. COMPARISON: None. CARDIAC STRESS: A pharmacologic stress test was performed under the supervision of an attending staff, using an infus ion of Lexiscan. Hemodynamic data: There is hypertensive and normal heart rate response to pharmacologic stress. Symptoms: The patient had 8/10 chest pain. Aminophylline: 125 mg IV EKG: No diagnostic changes of ischemia; no ectopy. FINDINGS: Raw data: There is good myocardial uptake of radiotracer. No significant motion artifacts. Left ventricle function: Gated images demonstrate normal left ventricular wall thickening. No segme ntal wall motion abnormalities. No transient ischemic dilation. Left ventricle resting end diastoli c volume is normal. Left ventricle stress ejection fraction is greater than 70%; normal range is abo ve 45%. Myocardial perfusion: There is normal distribution of activity in the right and left ventricular franchesca cardium. No fixed or reversible perfusion defects. IMPRESSION: 1. Normal myocardial perfusion images. 2. Normal left ventricular volume and systolic function. 3. The patient had 8/10 chest pain during Lexiscan infusion. No diagnostic EKG changes for ischemia. PQRS ATTESTATIONS: Measure 322 - Is this imaging test primarily performed on a low-risk surgery patient for preoperative evaluation within 30 days preceding their low-risk non-cardiac surgery? Low-risk surgery is defined as cardiac or myocardial infarction less than 1%, including (but not limited to) endoscopic pr ocedures, superficial procedures, cataract surgery, and excisional breast surgery: Answer: No Measure 323 - Is this imaging test performed primarily for the monitoring of an asymptomatic patient who had percutaneous coronary intervention on the visit date or within 2 years of the visit date? An swer: No Measure 324 - Is this imaging test performed primarily for the initial detection and risk assessment on an asymptomatic, low coronary heart disease patient? Low CHD risk definition = clinicians should consider the maximum number of available patient factors used to estimate risk based on [place] (A TP III criteria), typically age, gender, diabetes, smoking status, and use of blood pressure medicati on, and integrate age appropriate estimates for missing elements, such as LDL or standard blood press ure. Answer: No Dictated by: Geno Pate M.D. on 04/07/2016 at 14:35 Approved by: Geno Pate M.D. on 04/07/2016 at 14:40
--- NOTE | 2016-04-07 17:49 | PCM.PNMED ---
Subjective Date of Service Apr 07, 2016 Subjective Patient was examined at bedside today. Patient denies any chest pain, nausea, vomiting, diarrhea. Patient reports shortness of breath with exertion. Patient also reports low back pain which she visits secondary to deconditioning from lying in a hospital bed all day. Exam Vital Signs Vital Sign - Last Date Time Temp Pulse Resp B/P Pulse Ox O2 Delivery O2 Flow Rate FiO2 04/07/16 17:21 36.4 97 18 126/77 98 Room Air Intake and Output 04/06/16 04/06/16 04/07/16 Cumulative From/Thru 15:00 23:00 07:00 04/04/16 10:27 - 04/07/16 06:23 Intake Total 162 ml 800 ml 0 ml 3776 ml Output Total 850 ml 700 ml 2750 ml Balance 162 ml -50 ml -700 ml 1026 ml Intake Oral 800 ml 0 ml 1974 ml IV Total 162 ml 1802 ml Output Urine Total 850 ml 700 ml 2750 ml # Voids 3 # Bowel Movements 0 1 1 Exam Physical Exam: GEN: Patient was awake, alert, responding appropriately to questions HEENT: PERRLA, EOMI, Neck soft supple, trachea midline, nomocephalic/atraumatic CV: +S1/S2, regular, positive systolic murmurs auscultated Respiratory: CTAB, no wheezes, rales, rhonchi GI: +bowel sounds x4, soft, compressible, non TTP EXT: no c/c/e Neuro: CN II-XII grossly intact Psych: mood and affect were appropriate IVs and Medications Medications Reviewed: Medications were reviewed in detail Medications Current Medications Levofloxacin/ Dextrose/Premix 50 ml @ 33.333 mls/ hr Q24H IV; Start 04/06/16 at 10:55; Stop 04/06/16 at 11:12; Status DC Docusate Sodium 100 mg BID PRN PO Last administered on 04/06/16 11:07; Admin Dose 100 MG; Start 04/06/16 at 11:00 Acetaminophen 650 mg 650 mg Q4H PRN PO Last administered on 04/06/16 11:07; Admin Dose 650 MG; Start 04/06/16 at 11:00 Levofloxacin/ Dextrose/Premix 50 ml @ 33.333 mls/ hr Q24H IV Last administered on 04/07/16 08:51; Admin Dose 33.333 MLS/HR; Start 04/07/16 at 08:30 Aspirin 81 mg DAILY PO Last administered on 04/07/16 08:49; Admin Dose 81 MG; Start 04/07/16 at 08:30 Lab and Diagnostics Result Diagram: 04/07/1630 04/07/16 0530 Assessment & Plan 85-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 Acute, active Dyspnea, POA, ddx: atypical infectious process, interstitial lung dz, malignancy with lymphagetic spread, - BCX negative 24 hours, flu swab negative, strep/legionella Ag negative - patient is positive for rhinovirus/enterovirus -Continue Levaquin 750mg qd, patient is currently responding well will consider Doxycycline for atypical infection, if patient's symptoms do not resolve -will not start steroid yet given no clear clinical picture -keep on telemetry, -Infectious disease consulted -O2 supplement target >92% New-onset atrial fibrillation -Heart rate is currently controlled -Continue diltiazem 30 by mouth twice a day -Consult cardiology Dr. Mello Elevated Troponin's -Patient had an elevated troponin at 0.017 upon admission however it is currently trending down at 0.013. This is most likely a troponin leak in the setting of an elevated creatinine the patient's acute kidney injury is resolving. CK-MB was within normal limits. -Repeat troponin is now within normal limits 0.010 Elevated blood glucose -Hemoglobin A1c pending Hypertension, POA, likely undiagnosed, -Continue diltiazem 30 bid given acute lung process, control HR. Echo results: Estimated ejection fraction is 70-75%, left ventricular systolic function is normal without focal wall motion abnormalities, left ventricle is normal in size with diastolic parameters suggesting a pseudonormalization pattern consistent with elevated filling pressures. systolic MR, likely severe valvular dz in the setting of uncontrolled HTN, follow up with TTE. Back pain -Tylenol 650 when necessary pain -Physical therapy consulted - OMT chronic, stable #hx of breast CA, cervical CA, remote, seemed in remission dvt ppx: HSQ diet: general dispo: Patient was taken for stress test today which presented with normal findings. We will continue to follow recommendations from cardiology at this time. Patient is progressing but may need possible rehabilitation status post discharge. Physical therapy has been ordered. Patient's infection seems to be resolving as her white count normal and the patient's anemia is starting to correct as well. VTE Mechanical Devices: Venous Foot Pump Nicolasa Mobley DO Apr 07, 2016 17:49
--- NOTE | 2016-04-07 17:52 | PCM.PROC ---
Procedure Note Procedure: Procedure: Osteopathic Manipulative Treatment Subjective: Patient currently complains of low back pain most likely secondary to deconditioning. The patient states that moving seems to help relieve the pain however lying in bed worsens the pain. The patient describes the pain as an achy feeling. Risks and benefits of OMT were explained to the patient and verbal consent obtained. Osteopathic Structural Exam: Thoracics: T7 to T10 hypertonicity on the left Lumbars: L2 to L5 hypertonicity on the right greater than left Pelvis: Anterior right innominate Lower extremities: Still as hypertonicity on the right greater than left Sacrum: Right SI joint compression Patient responded well to treatment. Osteopathic treatment modalities used: Myofascial release, Muscle Energy, Cranial, HVLA, BLT, rib raising, and soft tissue technique Nicolasa Mobley DO Apr 07, 2016 17:51
--- NOTE | 2016-04-07 20:21 | CONS ---
[address] [address] CONSULTATION REPORT PATIENT: ARMAND FELIX : 1930 MR#: [id number] ADMIT: 04/04/2016 JOB ID: [id number] DATE OF SERVICE: 04/07/[address] Nicolasa Mobley for this timely consult. REASON FOR CONSULTATION: Atypical pneumonia with dyspnea. HISTORY OF PRESENT ILLNESS: The patient is an 85-year-old woman with a past medical history in the distant past for breast cancer, as well as cervical cancer. These problems were both addressed back in the . Over the past 25 years or so ago she has not seen a physician for any reason whatsoever. She continues to get her annual flu shot and otherwise feels her health has been fairly good. She only retired just a few short years ago and has continued to be quite active, without any known significant problems. About two months ago, she developed what she describes as a severe cold associated with some cough, sneezing, and some shortness of breath. This shortness of breath is most notable with exertion. Cold and cough symptoms gradually diminished, though she continued to have a hacking cough which was intermittently productive of some very minimal sputum. There was no associated fevers, chills, or sweats, however, and nothing in the way of chest pain. What was problematic, however, was that she continued to be very short of breath with exertion and this was a new problem for her, which has significantly limited her activities recently. Back on April 04 or so, the patient's symptoms became so severe that she was unable to catch her breath at all and laid awake all night with serious shortness of breath and intermittent sensations of fullness or tightness in her chest. This was accompanied by a fairly minimal amount of cough but was, of course, terrifying to her and led her to have her grandson bring her to the ED where she was subsequently admitted. Shortly after admission an echo was done which showed severe pulmonary hypertension up to 65, as well as mitral valve annular calcification and severe mitral regurgitation. She has subsequently been evaluated for both infection as well as cardiac issues throughout her three days here in the hospital. An ID consult is requested regarding additional evaluation of possible infection. The patient tells me that through this long two-month or so illness, she has really not had fevers, chills or sweats. She also has not had any significant weight loss and she has had this intermittent cough, sometimes productive, and dyspnea with exertion. She has not had any significant GI symptoms. PAST MEDICAL HISTORY: 1. Porphyria. No specific treatment or symptoms at this time. 2. Breast cancer in 1979. 3. Cervical cancer in 1980. 4. Organic heart disease. a. Atrial fibrillation. b. Mitral regurgitation. c. Pulmonary hypertension. Note that the organic heart disease issues basically just surfaced during this admission. SOCIAL HISTORY: The patient was a smoker, but quit about two decades ago. She occasionally consumes alcohol especially when on vacation but not to excess. 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 FAMILY HISTORY: Negative for tuberculosis and this family history includes her parents, siblings, and children. PHYSICAL EXAMINATION: Reveals an afebrile woman in no acute distress. She has been afebrile since admission which is now four days. Temp 36.5, pulse 92, respiratory rate 20, blood pressure 112/72, and she is saturating 98% on room air. Examination of the mental status reveals it to be completely clear. Her head is without trauma. Eyes without conjunctival or scleral abnormalities. Oral cavity without thrush or hairy leukoplakia. Neck without adenopathy or JVD. The lungs are notable for some rales heard most clearly at the left base with a few at the right base as well. Cardiac tones: Regular rate and rhythm but a 2/6 murmur as well heard and radiates towards the axilla on the left. The abdomen is soft and nontender. There is no organomegaly, no ascites. No suprapubic fullness is noted. There is no Juan catheter. The upper extremities are without evidence of synovitis or cellulitis. The lower extremities without any significant edema. Peripheral pulses are reasonable with good capillary refill. There is no evidence of synovitis in the lower extremities either. LABORATORIES: Include white count 7800, platelet count 222,000. Creatinine 0.89. LFTs are normal. Albumin 3.1. No procalcitonin has been done so I ordered a stat one to be added to today's labs and that is pending. Urinalysis without white cells. Urine Legionella antigen negative. Urine pneumococcal antigen negative. Blood cultures times 2 negative and respiratory viral PCR panel positive for rhinovirus/enterovirus. IMAGING: Includes a single chest x-ray done on admission which is said to show mild patchy bilateral infiltrates. I examined this and concur. IMPRESSION: The diagnosis of respiratory viral process seems clear-cut. The patient has had some longstanding cough which has sometimes been productive without much in the way of fever or chills, and this would certainly go along with a viral pneumonia. We have a positive probe for rhinovirus and/or and/or enterovirus and this could certainly explain some of her symptoms. I see no evidence for ongoing significant bacterial infection, however, though I would prefer to see at least one negative procalcitonin before making that a solid and firm recommendation. I note that the patient has been on levofloxacin here over the past couple of days for presumptive treatment of an atypical pneumonia, but I am not certain that this is necessary, especially if we can get back some negative procalcitonin levels. More significantly, I think the patient would seem to have underlying cardiovascular disease. She reports that for a couple months now she has been becoming breathless without much exertion and this has also been a problem for her when lying flat at night. She notes this has been progressively increasing and I wonder if this could be a manifestation of her severe mitral regurgitation and also note that she was admitted with very high blood pressures, as high as 205/127, which have moderated greatly with therapy so I wonder if there is hypertensive cardiomyopathy as well as right-sided heart failure, and perhaps a very significant mitral regurgitation involved here, but of course I will leave these issues to our Cardiology colleagues. RECOMMENDATIONS: 1. I have asked for a procalcitonin to be done today and one to be repeated tomorrow. 2. If both these procalcitonins are low, meaning less than 0.25, and certainly if they are less than 0.1, I would discontinue all antibiotics and conclude that what we were dealing with here with strictly a viral pneumonia. 3. Should the procalcitonin come back high, which I doubt, it may be reasonable to treat for a longer course for so-called atypical bacterial pneumonia. 4. Will continue to watch the workup which is ongoing now in terms of Cardiology with a stress test to be done today. Thank you very much for involving me in the care of this patient.
[2016-04-08] VITALS (9 sets, daily range): BP systolic 106–156; BP diastolic 71–110; PULSE 61–98; RESP 18; O2SAT 96–99
--- NOTE | 2016-04-08 04:04 | CONS ---
[address] [address] CONSULTATION REPORT PATIENT: ARMAND FELIX : 1930 MR#: [id number] ADMIT: 04/04/2016 JOB ID: [id number] DATE OF SERVICE: 04/07/2016 Please refer to consultation note by my physician bindery library technical assistant, Miles Car PA-C. The patient was seen in hospital on April 06, 2016. The chart was extensively reviewed and I personally took the detailed history from the patient. BRIEF HISTORY: Patient is a delightful 85-year-old, very mentally sharp woman, who was admitted to the hospital with episode of shortness of breath, diminished exercise tolerance and fatigue. Patient had been having these symptoms for the last several weeks when she decided to come into the hospital. On evaluation, she was noted to have new onset (newly diagnosed) atrial fibrillation, along with symptoms of shortness of breath. Patient was admitted by the hospitalist service. I received a phone call for further management of her new onset atrial fibrillation. The patient states that she is mostly home and has very limited functional tolerance. She is barely able to walk up to her mailbox without getting symptoms of shortness of breath, fatigue and tiredness. She reported several episodes of tachy palpitations which are spontaneous in onset, relieved spontaneously as well. She reported dizziness and unsteadiness with such episodes. She does spend most of the time lying in the bed, though she is able to ambulate and go to the bathroom and personally take care of herself. The patient has not used medical system for several years, though she has a complex medical history. She tells me that she has not seen a provider for the last 20 years. PAST MEDICAL HISTORY: Significant for: 1. Hypertension. 2. Porphyria. 3. Breast cancer. 4. Cervical cancer. PAST SURGICAL HISTORY: Significant for: 1. Appendectomy. 2. Radical mastectomy. 3. Hysterectomy in 1980. FAMILY HISTORY: Father of myocardial infarction. Mother with brain aneurysm. SOCIAL HISTORY: She smoked for 40 years. She quit smoking 15 years ago. REVIEW OF SYSTEMS: Significant for: 1. Shortness of breath. 2. Exercise intolerance, fatigue and tiredness. 3. Tachy palpitations. 4. Dizziness. ALLERGIES: She is allergic to BARBITURATES. HER CURRENT MEDICATIONS: In the hospital include: 1. Albuterol inhalers every 4 hours. 2. Levofloxacin q.24 h., 250 mg 3. Heparin 5000 units subcu every 12 hours. 4. Aspirin 81 mg daily. 5. Diltiazem 30 mg b.i.d. PHYSICAL EXAMINATION: Vital signs: Blood pressure is 126/77, pulse of 80 to 90 beats per minute, irregularly irregular. She is alert, oriented. She is very sharp. Asked all good questions. Is alert and oriented. Pupils are normal size, normal reaction. She has short frame. Neck is soft, supple. No elevated JVD. Carotid upstroke is normal. There is bilateral carotid bruit noted. She has a harsh holosystolic murmur heard diffusely in the precordium. Associated with thrill. S2 and S3 were not well discerned. Air entry was fair and equal in both sides. She does have bilateral basal crackles. Abdomen is soft, benign, nontender. Lower extremities: No pedal edema was noted. LABORATORIES: White count is 7.8, hemoglobin of 11, hematocrit of 34.9, platelets are 212. Serum glucose is 115. Her other electrolytes are within normal limits. Her stress test performed in the hospital demonstrated normal perfusion with no evidence of ischemia, with no evidence of reversible perfusion defect. Post stress ejection fraction was 70%. This is probably an overestimation due to small ventricular size. Her echocardiogram was performed on April 04, 2016, which was revealed hyperdynamic systolic function. She has severe biatrial enlargement with evidence of elevated filling pressures. She has moderate to severe pulmonary hypertension with right ventricular systolic pressure measured at 65 mmHg. There is moderate to severe mitral annular calcification. The posterior mitral leaflet is more heavily calcified. There is an anteriorly directed moderate to severe mitral regurgitation noted. The code status was discussed with the patient. The patient was vague about her decision, though she said that if she was vegetative state she would not like to be resuscitated. ASSESSMENT AND RECOMMENDATIONS: 1. Patient has a new onset atrial fibrillation probably secondary to age, as well as structural heart disease. She has moderate to severe mitral regurgitation in the setting of elevated left atrial filling pressures. She does have restrictive physiology with very low mitral annular median and lateral velocities. The atrial fibrillation is likely related to age, as well as severe mitral regurgitation. The patient was given several options about her mitral regurgitation. The patient is clearly symptomatic and has grade 3 mitral regurgitation. However, her options are very limited given her age of 85. Her options include medical therapy, including rate controlling medications, afterload-reducing medications, as well as preload-reducing medications to reduce her left atrial filling pressures. This will provide her symptomatic relief. The other option would be surgical repair versus replacement of the mitral valve. Given her age, she is at very high risk. Given this scenario, patient elected to proceed with further optimizing her medical therapy. Recommend at this time: a. I would like to increase her diltiazem to 120 mg XL once daily. b. I would like to add metoprolol succinate 25 mg. c. Anticoagulation. Warfarin versus Xarelto. Patient remained at high CVA risk due to underlying [id number] score of 4; therefore, anticoagulation is recommended. 2. Hypertension. I would like to initiate her on lisinopril 10 mg twice daily. Then, gradually up-titrate the dose if indicated. I would also add 20 mg of Lasix daily. 3. Diastolic dysfunction. There are no clear therapies for diastolic dysfunction other than starting patient on VIVEK inhibitors, diuretics and a beta-dorothea. Patient is going to be treated for her atrial fibrillation and hypertension; therefore, those medications will address her diastolic dysfunction. 4. Hypothyroidism TSH is elevated. PLAN AND RECOMMENDATIONS: 1. Low-salt diet. 2. Management of blood pressure. 3. Manage weight. Please call the office if there is increase in weight gain more than five pounds. 4. Lisinopril 10 mg twice daily. 5. Metoprolol succinate 25 mg daily. 6. Diltiazem XL 120 mg daily. 7. Lasix 20 mg daily. 8. Warfarin versus Xarelto for stroke prevention. 9. Patient advised to follow up with me in the office next week and we will titrate her medications at that time. Patient was given contact information to reach me in the office. 10. Start levothyroxine for hypothyroidism. I appreciate the opportunity to participate in the care of this delightful woman. Please do not hesitate to call me. My cell phone number is [phone]. [facility], [place]
--- NOTE | 2016-04-08 04:43 | NUR ---
Exertion Pt reports dizziness, lightheadedness, and dyspnea on exertion, states "I don't get up and walk much because I can't!" Denies any CP at rest or on exertion. SpO2 stable on RA, VSS, tele afib 90s. Pt able to rest this shift.
[2016-04-08] MEDS: levoFLOXacin Inj 250 MG in IV Premix 1 EACH IV SCH (07:57)
[2016-04-08] MEDS: Heparin 5,000 Unit/mL Inj SUBQ SCH ×2 (07:57→22:10)
[2016-04-08 08:21] LABS: Mean Corpuscular Hemoglobin 27.6 pg (27.0-35.0); Mean Corpuscular Volume 87.7 fL (81-100)
--- NOTE | 2016-04-08 09:28 | NUR ---
JUAN signed. AMELIA Hanna
--- NOTE | 2016-04-08 09:53 | NUR ---
[employer] consult received. Pt politely declined [employer] evaluation at this time. Please reorder consult if needed.
[2016-04-08] MEDS: MeTOProlol XL 25 mg ER24 Tablet PO SCH (10:29)
[2016-04-08] MEDS: Diltiazem CD 120 mg ER24 Capsule PO SCH (10:29)
--- NOTE | 2016-04-08 10:35 | NUR ---
Social Work-readiness for discharge: Data:EMR reviewed. Pt is on day 4 of hospitalization for elevated troponin per H&P. Pt may be ready to discharge tomorrow. PT saw pt and recommended SNF, pt only able to ambulate at bout 25ft CGA. SW followed up with pt, provided her with information about follow up PCP appointment. SW also discussed recommendation of SNF. SW provided pt with SNF list. Pt states she would like a referral to [facility]. SW faxed [facility] and facesheet and provided access in [employer]. Paperwork and [facility] placed in the chart. SW will continue to follow. Assessment:Pt who would benefit from SNF. Plan:[facility]. Paperwork and [facility] placed in the chart. SW will continue to follow. AMELIA Hanna
--- NOTE | 2016-04-08 10:38 | NUR ---
SNF list provided. AMELIA Hanna
--- NOTE | 2016-04-08 10:38 | NUR ---
[facility] can accept with Dr. Holder to follow. AMELIA Hanna
--- NOTE | 2016-04-08 14:49 | PCM.PNMED ---
Subjective Date of Service Apr 08, 2016 Subjective Patient was seen and examined at bedside. Patient denies any chest pain, nausea , vomiting, diarrhea. But the patient does report shortness of breath. Patient also reports deconditioning. Exam Vital Signs Vital Sign - Last Date Time Temp Pulse Resp B/P Pulse Ox O2 Delivery O2 Flow Rate FiO2 04/08/16 10:31 36.7 89 18 116/80 98 Room Air Intake and Output 04/07/16 04/07/16 04/08/16 Cumulative From/Thru 15:00 23:00 07:00 04/04/16 10:27 - 04/08/16 06:52 Intake Total 56 ml 336 ml 200 ml 4368 ml Output Total 700 ml 300 ml 3750 ml Balance 56 ml -364 ml -100 ml 618 ml Intake Oral 336 ml 200 ml 2510 ml IV Total 56 ml 1858 ml Output Urine Total 700 ml 300 ml 3750 ml # Voids 3 # Bowel Movements 1 Exam Physical Exam: GEN: Patient was awake, alert, responding appropriately to questions HEENT: PERRLA, EOMI, Neck soft supple, trachea midline, nomocephalic/atraumatic CV: Irregular positive systolic murmur grade 3/6 Respiratory: CTAB, no wheezes, rales, rhonchi GI: +bowel sounds x4, soft, compressible, non TTP EXT: no c/c/e Neuro: CN II-XII grossly intact Psych: mood and affect were appropriate IVs and Medications Medications Reviewed: Medications were reviewed in detail Medications Current Medications Levofloxacin/ Dextrose/Premix 50 ml @ 33.333 mls/ hr Q24H IV Last administered on 04/08/16 07:57; Admin Dose 33.333 MLS/HR; Start 04/07/16 at 08:30 Aspirin 81 mg DAILY PO Last administered on 04/08/16 07:57; Admin Dose 81 MG; Start 04/07/16 at 08:30 Metoprolol Tartrate 25 mg BID PO; Start 04/08/16 at 08:30; Stop 04/08/16 at 08: 30; Status DC Diltiazem HCl 120 mg DAILY PO Last administered on 04/08/16 10:29; Admin Dose 120 MG; Start 04/08/16 at 08:30 Metoprolol Succinate 25 mg DAILY PO Last administered on 1/31/17at 10:29; Admin Dose 25 MG; Start 04/08/16 at 08:30 Lisinopril 10 mg DAILY PO Last administered on 04/08/16 10:29; Admin Dose 10 MG ; Start 04/08/16 at 08:30 Furosemide 20 mg DAILY PO Last administered on 04/08/16 10:29; Admin Dose 20 MG ; Start 04/08/16 at 08:30 Lab and Diagnostics Result Diagram: 04/08/16 0535 04/08/16 0530 Assessment & Plan 85-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 Acute, active Dyspnea, POA, ddx: atypical infectious process, interstitial lung dz, malignancy with lymphagetic spread, - BCX negative 24 hours, flu swab negative, strep/legionella Ag negative - patient is positive for rhinovirus/enterovirus -Continue Levaquin 750mg qd, patient is currently responding well will consider Doxycycline for atypical infection, if patient's symptoms do not resolve -will not start steroid yet given no clear clinical picture -keep on telemetry, -Infectious disease consulted -O2 supplement target >92% New-onset atrial fibrillation -Heart rate is currently controlled -Increased diltiazem 120 mg daily extended release as recommended by cardiology -Start metoprolol to succinate 25 mg daily as recommended by cardiology -Start lisinopril 10 mg twice a day as recommended by cardiology -Start Lasix 20 mg daily as recommended by cardiology -Start Xeralto 20 mg daily as recommended by cardiology -Consult cardiology Dr. Mello Elevated TSH -Patient is TSH was elevated at 18.65 however her free T4 was within normal limits patient may have hypothyroidism and this should be worked up further as an outpatient. Elevated Troponin's -Patient had an elevated troponin at 0.017 upon admission however it is currently trending down at 0.013. This is most likely a troponin leak in the setting of an elevated creatinine the patient's acute kidney injury is resolving. CK-MB was within normal limits. -Repeat troponin is now within normal limits 0.010 Elevated blood glucose -Hemoglobin A1c 5.6 within normal limits Hypertension, POA, likely undiagnosed, -Increased diltiazem to 120 mg daily - Start lisinopril 10 next twice a day Echo results: Estimated ejection fraction is 70-75%, left ventricular systolic function is normal without focal wall motion abnormalities, left ventricle is normal in size with diastolic parameters suggesting a pseudonormalization pattern consistent with elevated filling pressures. systolic MR, likely severe valvular dz in the setting of uncontrolled HTN, follow up with TTE. Back pain -Tylenol 650 when necessary pain -Physical therapy consulted - OMT chronic, stable #hx of breast CA, cervical CA, remote, seemed in remission dvt ppx: HSQ diet: general dispo: The patient is progressing daily. Cardiology has made several recommendations and the patient has been started on these medications. However the patient has become deconditioned while here in the hospital and physical therapy has recommended SNF. Case management is currently looking into SNF placement patient should be ready to discharge in the next 1-2 days. [employer] Devices: Venous Foot Pump Nicolasa Mobley DO Apr 08, 2016 14:49
--- NOTE | 2016-04-08 15:08 | NUR ---
Activity- Patient becomes short of breath and very tired during activity,ie- getting from bed to chair or short walk to bathroom, and needing to sit down to rest. Denies chest pain. Tele- Afib . HR- 70-90's. Patient realizes that she needs to push herself to regain strength for discharge.
--- NOTE | 2016-04-08 15:39 | NUR ---
Follow up PCP appointment scheduled for ThursdayApr.[address] [facility]. AMELIA Hanna
--- NOTE | 2016-04-08 15:57 | PROG NOTE ---
[address] [address] PROGRESS NOTE PATIENT: ARMAND FELIX : 1930 MR#: [id number] ADMIT: 04/04/2016 JOB ID: [id number] DATE: 04/08/2016 INFECTIOUS DISEASE FOLLOWUP NOTE: REASON FOR FOLLOWUP: Viral pulmonary infection. INTERVAL HISTORY: The patient reports no fevers or chills overnight. She continues to have a very minimal nonproductive cough without pleuritic chest pain. She is quite short of breath still with any exertion. She recently underwent a comprehensive consultation from Dr. Mello of cardiology. He notes that she had severe mitral regurg with high left-sided filling pressures and some restrictive physiology. Also noted, of course, was the AFib. He discussed with her possible replacement of the mitral valve or just continue medical management. The patient, after considerable deliberation, has decided on the medical management approach for her cardiac dysfunction. As noted, there are no fevers, chills, or any purulent sputum at this point. PHYSICAL EXAMINATION: Reveals an afebrile woman sitting in bed in no acute distress. Temp 36.5. She has been afebrile basically since admission. Pulse 79, respiratory rate 18, blood pressure 122/73. She is saturating very well on room air. Mental status is clear. Oral cavity negative. Lungs with a few crackles at the bases but not impressive. Cardiac tones are regular rate and rhythm. Abdomen soft and nontender. No skin rash. LABORATORIES: Include white count 7000. Creatinine 1. LFT normal. Procalcitonin 0 x2. Urinalysis without pyuria. Urine legionella and pneumococcal antigens negative. Blood cultures negative. Respiratory viral PCR positive for rhinovirus/enterovirus. IMAGING: No repeat chest x-ray has been done. IMPRESSION: I see no evidence whatsoever for a bacterial pulmonary infection and believe this is all a viral upper respiratory process, Which may actually involve the lower tract a bit with some viral pneumonia as indicated by the chest x-ray. There is no therapy for this, and the antibiotics that she has been receiving are no longer indicated, as we have no proof of bacterial infection. I suspect her severe dyspnea on exertion is entirely on the basis of her underlying cardiac disease with a possible small component of this being related to her viral infection. RECOMMENDATIONS: 1. Will discontinue all antibiotics today. 2. Infectious Disease will sign off. Please do not hesitate to call me if there are additional questions or problems that may arise.
--- NOTE | 2016-04-08 23:57 | NUR ---
Ambulation Pt walked around the floor tonight, did 1/2 loop on floor. No s/s of hypotension, no dizziness, no SOB. Pt returned to room and into bed, left pt with call light at bedside.
[2016-04-09] VITALS (7 sets, daily range): BP systolic 93–111; BP diastolic 61–74; PULSE 61–69; RESP 14–18; O2SAT 96–99
--- NOTE | 2016-04-09 01:20 | NUR ---
HR Tele called with HR belen down to 40 for short time then slowly up to 60. Went and woke up Pt, no chest pain, peripheral pulse at 64 on LUE. Will continue to monitor. Addendum: 04/09/16 at 0136 by [facility] RN HR Paged night hospitalist with HR information. Will monitor.
[2016-04-09 06:42] LABS: Mean Corpuscular Hemoglobin 27.8 pg (27.0-35.0); Mean Corpuscular Volume 87.7 fL (81-100)
[2016-04-09] MEDS: MeTOProlol XL 25 mg ER24 Tablet PO SCH (08:44)
[2016-04-09] MEDS: Heparin 5,000 Unit/mL Inj SUBQ SCH ×2 (08:44→21:08)
[2016-04-09] MEDS: Diltiazem CD 120 mg ER24 Capsule PO SCH (08:44)
--- NOTE | 2016-04-09 09:24 | NUR ---
Faxed script and insurance information to [facility] @ [place] [phone]. Patient is not established at any pharmacy currently and we need to know patient's OOP cost for this medication. Updated GUEST RELATIONS REPRESENTATIVE Patient has deductible of $325.00 so cost of medication for patient would be $357.13 Once Deductible is met likely to have patient copay of $32.13 Updated GUEST RELATIONS REPRESENTATIVE
--- NOTE | 2016-04-09 14:36 | PCM.PNMED ---
Subjective Date of Service Apr 09, 2016 Subjective Patient was examined at bedside today. Patient denies any chest pain, nausea, vomiting, diarrhea. Patient still reports shortness of breath with exertion but states that she feels overall improved and able to breathe better than she did when she was admitted. Exam Vital Signs Vital Sign - Last Date Time Temp Pulse Resp B/P Pulse Ox O2 Delivery O2 Flow Rate FiO2 04/09/16 10:15 36.8 65 16 105/68 98 Room Air Intake and Output 04/08/16 04/08/16 04/09/16 Cumulative From/Thru 15:00 23:00 07:00 04/04/16 10:27 - 04/09/16 06:05 Intake Total 790 ml 150 ml 5308 ml Output Total 750 ml 250 ml 4750 ml Balance 40 ml -100 ml 558 ml Intake Oral 790 ml 150 ml 3450 ml IV Total 1858 ml Output Urine Total 750 ml 250 ml 4750 ml # Voids 3 # Bowel Movements 2 1 4 Exam Physical Exam: GEN: Patient was awake, alert, responding appropriately to questions HEENT: PERRLA, EOMI, Neck soft supple, trachea midline, nomocephalic/atraumatic CV: +S1/S2, regular, positive systolic murmur Respiratory: CTAB, no wheezes, rales, rhonchi GI: +bowel sounds x4, soft, compressible, non TTP EXT: no c/c/e Neuro: CN II-XII grossly intact Psych: mood and affect were appropriate IVs and Medications Medications Reviewed: Medications were reviewed in detail Medications Current Medications Metoprolol Tartrate 25 mg BID PO; Start 04/08/16 at 08:30; Stop 04/08/16 at 08: 30; Status DC Diltiazem HCl 120 mg DAILY PO Last administered on 04/09/16 08:44; Admin Dose 120 MG; Start 04/08/16 at 08:30 Metoprolol Succinate 25 mg DAILY PO Last administered on 04/09/16 08:44; Admin Dose 25 MG; Start 04/08/16 at 08:30 Lisinopril 10 mg DAILY PO Last administered on 04/08/16 10:29; Admin Dose 10 MG ; Start 04/08/16 at 08:30; Stop 04/09/16 at 08:08; Status DC Furosemide 20 mg DAILY PO Last administered on 04/09/16 08:45; Admin Dose 20 MG ; Start 04/08/16 at 08:30 Lisinopril 5 mg DAILY PO; Start 04/09/16 at 08:30; Stop 04/09/16 at 08:30; Status DC Lisinopril 5 mg DAILY PO Last administered on 04/09/16 08:44; Admin Dose 5 MG; Start 04/09/16 at 08:30 Lab and Diagnostics Result Diagram: 04/09/16 0557 04/09/16 0557 Assessment & Plan 85-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 Acute, active Rhinovirus infection - BCX negative 24 hours, flu swab negative, strep/legionella Ag negative - patient is positive for rhinovirus/enterovirus -Discontinue Continue Levaquin 750mg qd as no acute pulmonary bacterial lung infection is suspected these recommendations were from infectious disease -keep on telemetry, -Infectious disease consulted and recommended discontinuing the Levaquin -O2 supplement target >92% New-onset atrial fibrillation -Heart rate is currently controlled -Continue diltiazem 120 mg daily extended release as recommended by cardiology -Continue the metoprolol to succinate 25 mg daily as recommended by cardiology -Decrease lisinopril 10 mg daily down to 5 mg daily as recommended by cardiology -Continue Lasix 20 mg daily as recommended by cardiology with good urinary output with negative balance - Continue Xeralto 20 mg daily as recommended by cardiology - cardiology recommendations as per Dr. Mello Elevated TSH -Patient's TSH was elevated at 18.65 however her free T4 was within normal limits patient may have hypothyroidism and this should be worked up further as an outpatient. Elevated Troponin's -Patient had an elevated troponin at 0.017 upon admission however it is currently trending down at 0.013. This is most likely a troponin leak in the setting of an elevated creatinine the patient's acute kidney injury is resolving. CK-MB was within normal limits. -Repeat troponin is now within normal limits 0.010 Elevated blood glucose -Hemoglobin A1c 5.6 within normal limits Hypertension, POA, likely undiagnosed, -Increased diltiazem to 120 mg daily - Start lisinopril 10 next twice a day Echo results: Estimated ejection fraction is 70-75%, left ventricular systolic function is normal without focal wall motion abnormalities, left ventricle is normal in size with diastolic parameters suggesting a pseudonormalization pattern consistent with elevated filling pressures. systolic MR, likely severe valvular dz in the setting of uncontrolled HTN, follow up with TTE. Back pain (resolving) -Tylenol 650 when necessary pain -Physical therapy consulted - responded well to OMT Deconditioning -Physical therapy has recommended SNF placement chronic, stable #hx of breast CA, cervical CA, remote, seemed in remission dvt ppx: HSQ diet: general dispo: The patient is progressing well. Patient's BP medication was decreased today. Will reassess the patient in the morning. Patient will most likely be discharged to a care home facility tomorrow for further rehabilitation. VTE Mechanical Devices: Venous Foot Pump Time spent Greater than 35 minutes Nicolasa Mobley DO Apr 09, 2016 14:35
[2016-04-09] MEDS ORDERED: FUR20 PO (16:13)
[2016-04-09] MEDS ORDERED: ASPI81TA3 PO (16:13)
[2016-04-09] MEDS ORDERED: METO25TA99 PO (16:13)
[2016-04-09] MEDS ORDERED: DILT120C83 PO (16:13)
[2016-04-09] MEDS ORDERED: LISI-571 PO (16:13)
--- NOTE | 2016-04-09 19:45 | NUR ---
Shift note Pleasant and cooperative pt, able to make needs known, uses call light appropriately. Worked with PT in room today. Up to chair for meals. Diet changed to 2gm Na. Supervisor Fine Grading in to see pt. Pt c/o low back pain intermittently but denied need for PO Tylenol. Bed in low position, call light in reach.
[2016-04-10 01:01] VITALS: BP 99/68; PULSE 64; RESP 16; O2SAT 98
[2016-04-10 05:48] LABS: Mean Corpuscular Hemoglobin 27.4 pg (27.0-35.0); Mean Corpuscular Volume 87.8 fL (81-100)
[2016-04-10 06:08] VITALS: BP 112/68; PULSE 60; RESP 16; O2SAT 98
[2016-04-10 07:24] VITALS: PULSE 62
[2016-04-10] MEDS: Diltiazem CD 120 mg ER24 Capsule PO SCH (08:22)
[2016-04-10] MEDS: MeTOProlol XL 25 mg ER24 Tablet PO SCH (08:23)
[2016-04-10] MEDS: Heparin 5,000 Unit/mL Inj SUBQ SCH (08:24)
[2016-04-10 09:00] VITALS: PULSE 71
[2016-04-10 10:09] VITALS: BP 99/68; PULSE 66; RESP 18; O2SAT 98
--- NOTE | 2016-04-10 10:48 | NUR ---
Called Poppy Harrington CM at [facility] and updated her on patient and need for authorization to transfer to [facility] today. Updated MOLD DESIGN ENGINEER Addendum: 04/10/16 at 1144 by W[facility] GROVER CM Poppy Harrington approved patient to transfer to [facility] today. Updated MOLD DESIGN ENGINEER
[2016-04-10] MEDS ORDERED: LISI-571 PO (11:49)
--- NOTE | 2016-04-10 11:55 | PCM.DICHF ---
CHF Discharge Instructions Date of Service: Apr 10, 2016 Dates of Hospitalization Date of Hospital Admission Apr 04, 2016 at 14:04 Date of Discharge: Apr 10, 2016 Providers Admitting Physician: Paulo Jackson MD Primary Care Physician: Tai Attending Physician: Paulo Jackson MD Diagnosis at Time of Discharge Diagnosis at time of discharge Rhinovirus New onset afib Nwe onset CHF Elevated TSH Hypertension Deconditioning Problems: Labs Ejection Fraction Laboratory Tests Test Range/Units 04/04/16 10:38 04/06/16 05:35 04/06/16 18:40 04/07/16 05:30 Pro-B-Type Natriuretic Peptide 0-738 pg/mL 3114 Hemoglobin A1c 4.8-5.6 % 5.6 Total Creatine Kinase 21-215 U/L 66 Creatine Kinase MB 0.0-5.3 ng/mL 3.3 Creatine Kinase MB % 0.0-5.0 % Triglycerides Level 0-149 mg/dL 88 Cholesterol Level 100-199 mg/dL 142 LDL Cholesterol, Calculated 0-99 mg/dL 73.400 VLDL Cholesterol mg/dL 17.600 HDL Cholesterol >39 mg/dL 51 Cholesterol/HDL Ratio 0.0-4.4 2.78 Magnesium Level 1.6-2.6 mg/dL 1.9 Thyroid Stimulating Hormone (TSH) 0.450-4.500 uIU/mL 18.650 Troponin T 0.0-0.011 ug/L 0.010 Test Range/Units 04/08/16 05:30 04/08/16 05:35 04/09/16 05:57 Free Thyroxine 0.82-1.77 ng/dL 0.99 Procalcitonin See Comment ng/mL < 0.05 Sodium Level 134-144 mEq/L 138 Potassium Level 3.5-5.2 mEq/L 4.5 Chloride Level 97-108 mEq/L 102 Carbon Dioxide Level 18-29 mmol/L 24 Blood Urea Nitrogen 8-27 mg/dL 29 Creatinine 0.57-1.00 mg/dL 1.07 Estimat Glomerular Filtration Rate >59 mL/min 70 Glucose Level 60-99 mg/dL 109 Calcium Level 8.5-10.1 mg/dL 8.6 Total Bilirubin 0.0-1.2 mg/dL 0.6 Aspartate Amino Transf (AST/SGOT) 0-50 U/L 22 Alanine Aminotransferase (ALT/SGPT) 0-32 U/L 19 Alkaline Phosphatase 25-165 U/L 71 Total Protein 6.4-8.4 g/dL 6.3 Albumin 3.4-5.0 g/dL 3.3 Discharge Medications Other Medication Instructions You have received instructions on the medications your physician has prescribed at discharge. A list of these medications has been provided to you. Keep this and a list of all current medications with you. Keep the dates when you received the Flu and Pneumococcal (Pneumonia) Vaccines. Last known date of receiving Flu Vaccine NOV 2015 Last known date of receiving Pneumococcal (Pneumonia) Vaccine Diet Diet Instructions CHF Low Salt diet ( 2 grams or less sodium/day) Choose foods and drinks with low or no salt. Remove salt shaker from the table. Read Nutritional Facts labels. Activity CHF Discharge Activity: Be up and about, Activity as energy allows Weight Monitoring 1. Weigh yourself every day at the same time and write it down. 2. Take your weight log to your doctor visits. 3. Call your doctor if you gain 3-5 pounds over 2-3 days. 4. Your weight today is 154.76 lbs. Additional Instructions CHF Teaching Packet given and: Yes Smoking--Tobacco Use If you smoke, you are strongly encouraged to stop. If you have recently quit smoking, CONGRATULATIONS. For further information to stop smoking or to remain smoke-free, Follow Up Plan Follow Up Plan Be sure and call Dr. Mello with an updated as to how your doing in 1 week and schedule a follow up appointment with his office. Your TSH levels were elevated which may be suggestive of hypothyroid disease. Please follow up with your PCP for furher work up. This may be elevated because of your recent infection and new diagnosis of CHF and afib. Please follow up with your PCP to have this worked up as an outpatient. Follow Up: Weeks (Please follow up with your PCP Dr. Candice Deluna DO on May 06 at 3:15pm [address] [address] ) Cardiology Follow-up Provider: 2 weeks (Please follow up with Dr. Mello as he requested) Report or call your Doctor REPORT TO YOUR DOCTOR OR SEEK MEDICAL ATTENTION: *Shortness of breath or have more difficulty breathing. *Swelling of your feet, ankles, hands or abdomen. *Feeling tired with normal activity or experiencing dizziness or fainting. *Trouble sleeping or waking up feeling short of breath or coughing. *Chest pain or pressure. *Weight gain of 3-5 pounds over 2-3 days. *Inability to take medications or follow treatment plan Heart Attach warning signs HEART ATTACK WARNING SIGNS * Chest discomfort. *Discomfort or pain in one or both arms, back, neck, jaw or stomach. *Shortness of breath. *Breaking out in a cold sweat, nausea, or lightheadedness. If you're having heart attack warning signs: CALL . DON'T WAIT MORE THAN A FEW MINUTES - 5 MINUTES AT MOST - TO CALL . Nicolasa Mobley DO Apr 09, 2016 16:11
--- NOTE | 2016-04-10 12:16 | PCM.DC.MED ---
Discharge Summary Date of Service Apr 10, 2016 Dates of Hospitalization Date of Hospital Admission Apr 04, 2016 at 14:04 Date of Discharge: Apr 10, 2016 Providers: Admitting Physician: Paulo Jackson MD Primary Care Physician: Tai Attending Physician: Paulo Jackson MD Diagnosis at Time of Discharge Diagnosis at Time of Discharge Rhinovirus New onset afib Nwe onset CHF Elevated TSH Hypertension Deconditioning Procedures XRay, CTs & MRIs PROCEDURE: X-RAY CHEST, TWO VIEWS ([id number]) INDICATIONS: sob TECHNIQUE: 2 views of the chest were acquired. COMPARISON: None. FINDINGS: Surgical changes and devices: None. Lungs and pleura: No pleural effusions or pneumothorax. Mild patchy diffuse interstitial pulmonary opacity. Mediastinum: Mediastinal contours are normal. Heart size is normal. Bones and chest wall: No suspicious bony abnormalities. Soft tissues appear unremarkable. IMPRESSION: Mild atypical pneumonia. Dictated by: Lew Ghotra M.D. on 04/04/2016 at 11:38 Approved by: Lew Ghotra M.D. on 04/04/2016 at 11:38 Cardiac Echo Impression PROCEDURE: 1 DAY PHARMACOLOGICAL STRESS TEST Rest and pharmacological stress myocardial perfusion SPECT with gated imaging and ejection fraction RADIOPHARMACEUTICAL: 8.4 mCi Tc-99m tetrafosmin IV at rest and 23.8 mCi Tc-99m tetrafosmin IV at peak effect of pharmacological stress. A [id number] was performed. INDICATIONS: 85 year-old woman with chest pain and atrial fibrillation. The patient has hypertension and family history as risk factors for coronary artery disease. TECHNIQUE: Radiopharmaceutical was injected at peak stress test, and also at rest. SPECT images were obtained. SPECT myocardial perfusion images were displayed in short axis, horizontal long axis, and vertical long axis views. Gated images were reviewed using Auto[employer] software. COMPARISON: None. CARDIAC STRESS: A pharmacologic stress test was performed under the supervision of an attending staff, using an infusion of Lexiscan. Hemodynamic data: There is hypertensive and normal heart rate response to pharmacologic stress. Symptoms: The patient had 8/10 chest pain. Aminophylline: 125 mg IV EKG: No diagnostic changes of ischemia; no ectopy. FINDINGS: Raw data: There is good myocardial uptake of radiotracer. No significant motion artifacts. Left ventricle function: Gated images demonstrate normal left ventricular wall thickening. No segmental wall motion abnormalities. No transient ischemic dilation. Left ventricle resting end diastolic volume is normal. Left ventricle stress ejection fraction is greater than 70%; normal range is above 45 %. Myocardial perfusion: There is normal distribution of activity in the right and left ventricular myocardium. No fixed or reversible perfusion defects. IMPRESSION: 1. Normal myocardial perfusion images. 2. Normal left ventricular volume and systolic function. 3. The patient had 8/10 chest pain during Lexiscan infusion. No diagnostic EKG changes for ischemia. PQRS ATTESTATIONS: Measure 322 - Is this imaging test primarily performed on a low-risk surgery patient for preoperative evaluation within 30 days preceding their low-risk non- cardiac surgery? Low-risk surgery is defined as cardiac or myocardial infarction less than 1%, including (but not limited to) endoscopic procedures, superficial procedures, cataract surgery, and excisional breast surgery: Answer : No Measure 323 - Is this imaging test performed primarily for the monitoring of an asymptomatic patient who had percutaneous coronary intervention on the visit date or within 2 years of the visit date? Answer: No Measure 324 - Is this imaging test performed primarily for the initial detection and risk assessment on an asymptomatic, low coronary heart disease patient? Low CHD risk definition = clinicians should consider the maximum number of available patient factors used to estimate risk based on Babb[place] ( ATP III criteria), typically age, gender, diabetes, smoking status, and use of blood pressure medication, and integrate age appropriate estimates for missing elements, such as LDL or standard blood pressure. Answer: No Dictated by: Geno Pate M.D. on 04/07/2016 at 14:35 Approved by: Geno Pate M.D. on 04/07/2016 at 14:40 Echocardiogram revealed: 1. Grade 2 diastolic dysfunction. 2. EF of 70% to 75%. 3. Moderate to severe pulmonary hypertension. 4. RVSP of 65 mmHg. 5. Moderate to severe mitral regurgitation. 6. Moderate tricuspid regurgitation. EKG revealed atrial fibrillation and no other remarkable findings. Interpretation Summary Left ventricular systolic function is normal without focal wall motion abnormalities with the ejection fraction is estimated to be 70-75%. The left ventricle is normal in size with diastolic parameters suggesting a pseudonormalization pattern, consistent with elevated filling pressures. The right ventricle is normal in size and function. There is moderate-severe pulmonary hypertension with the right ventricular systolic pressure estimated at 65 mmHg assuming a right atrial pressure of 3 mm Hg. The left atrium is mildly dilated and the right atrium is borderline dilated. There is moderate mitral annular calcification. The mitral valve leaflets appear mildly thickened, but open well with probable moderate mitral valve prolapse of the posterior mitral valve leaflet producing probable moderately severe to severe mitral regurgitation with an eccentric jet of regurgitation that is directed anteromedially. Consider MADHU to better assess mechanism and severity of mitral regurgitation if clinically appropriate. There is moderate tricuspid regurgitation but no other significant valvular heart disease. The patient was in sinus tachycardia with heart rates between 95-110 bpm and frequent PACs during the exam. 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 Patient stated that she is living independently, only takes vitamin intermittently. Patient started noticing cold-like symptoms 6 weeks ago, had dry cough badly, which continued intermittently with minimal white sputum. Patient sometimes have nausea but never vomited. Patient thinks that her symptoms gradually got worse and last week, patient started noticing difficulty breathing with cough to the point that last night, patient was really short of breath, noticing her abdomen was up-and-down with labored breathing, noticing cold and hot sensation alternatively, did not take the temperature. Throughout his course, patient did not seek for any medical help, denied weight loss, but gradually became very weak, denied night sweats or fever. Patient stated that last time she had porphyria attack was more than 20 years ago in which she normally had black urine and really severe burning on urination, which was not present at this time. Therefore she did not think that it was Porphyria attack. Patient also had poor appetite, however denied any abdominal pain. For the past 2-3 weeks, he should also have felt lightheaded on sudden movement, denied any fall. In ED VS initially BP 200/127, 113, afebrile, 96 on RA, CXR showed diffuse interstitial infiltrate bilaterally. Labs were notable for mild leukocytosis, mild troponin, elevated proBNP. During the encounter, patient looked comfortable, speaking in full sentences, alert and oriented fully, very pleasant but looked weak. 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 The patient was diagnosed with rhinovirus blood cultures were negative 48 hours , flu swab was negative, strep/legionella were also negative. Once the patient was found to be positive for rhinovirus. Antibiotics of Levaquin were discontinued and pneumonia was ruled out. The patient did have an elevated troponin and seemed to be more of a picture of volume overload. The patient had a echo which showed an estimated ejection fraction is 70-75%, left ventricular systolic function is normal without focal wall motion abnormalities, left ventricle is normal in size with diastolic parameters suggesting a pseudonormalization pattern consistent with elevated filling pressures. systolic MR, likely severe valvular dz in the setting of uncontrolled HTN, follow up with TTE. The patient then underwent a cardiac stress test which was essentially negative. The patient was diagnosed with both CHF and new onset of A. fib it was thought to be most beneficial to rate control the patient. The patient does have significant mitral regurgitation and the option to replace the valve was given to the patient however she preferred to first try and rate control this with medications. The patient was placed on diltiazem 120 mg daily, metoprolol succinate 25 mg daily, Lasix 20 mg daily, Xeralto 20 mg daily as recommended by cardiology. Cardiology also recommended that the patient start lisinopril 10 mg daily however her blood pressures began to be too well and this medication was changed to lisinopril 2.5 mg daily. The patient does seem to be doing better and is not having as much difficulty breathing. The patient was also diagnosed with elevated TSH level at 18 however her free T4 was normal. His recommended that the patient have a repeat study of her TSH performed as this could have been elevated secondary to the patient's new onset of CHF and A. fib. It is recommended that this be further worked up. The patient was complaining of low back pain most likely secondary to deconditioning from lying in the bed. The patient was treated with OMT and responded well to treatment. Physical therapy was consulted for this patient and because of the patient's deconditioning it was recommended that the patient go to a [facility] facility for further rehabilitation. 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 The patient will be discharged to a [facility] facility and should follow- up with Dr. Mello of cardiology in 2 weeks and her primary care and 3 weeks. Exam Vital Signs (Last) Date Time Temp Pulse Resp B/P Pulse Ox O2 Delivery O2 Flow Rate FiO2 04/10/16 10:09 36.1 66 99/ 98 04/10/16 06:08 16 Room Air Exam Physical Exam: GEN: Patient was awake, alert, responding appropriately to questions HEENT: PERRLA, EOMI, Neck soft supple, trachea midline, nomocephalic/atraumatic CV: Positive systolic murmur, irregular Respiratory: CTAB, no wheezes, rales, rhonchi GI: +bowel sounds x4, soft, compressible, non TTP EXT: no c/c/e Neuro: CN II-XII grossly intact Psych: mood and affect were appropriate Test 04/04/16 10:38 04/04/16 13:00 04/04/16 13:14 04/06/16 05:35 Neutrophils (%) (Auto) 81.5% (40-74) Lymphocytes (%) (Auto) 12.0% (14-46) Monocytes (%) (Auto) 6.0% (4-12) Eosinophils (%) (Auto) 0.1% (0-5) Basophils (%) (Auto) 0.3% (0-3) Prothrombin Time 10.8sec (8.1-12.5) Prothromb Time International Ratio 1.01ratio Pro-B-Type Natriuretic Peptide 3114pg/mL (0-738) Urine Legionella pneumophilia Ag Negative (Negative) Urine Color Straw (YELLOW) Urine Appearance Hazy (CLEAR,HAZY) Urine pH 5.5 (5.0-8.0) Urine Specific [place] 1.030 (1.003-1.035) Urine Protein Tracemg/dL (NEG,TRACE) Urine Glucose (UA) Negativemg/dL (NEGATIVE) Urine Ketones Tracemg/dL (NEGATIVE) Urine Occult Blood Trace (NEGATIVE) Urine Nitrite Negative (NEGATIVE) Urine Bilirubin Negative (NEGATIVE) Urine Urobilinogen Normalmg/dL (NORMAL) Urine Leukocyte Esterase Moderate (NEGATIVE) Urine RBC 0-2/hpf (0-2) Urine WBC 0-5/hpf (0-5) Urine Epithelial Cells Occasional/hpf (NONE-MOD) Urine Crystals None seen (NONE SEEN) Urine Bacteria Few/hpf (NONE-FEW) Urine Hyaline Casts None/lpf (NONE) Urine Granular Casts Occasional (NONE SEEN) Urine Waxy Casts None seen (NONE SEEN) Urine Red Blood Cell Casts None seen (NONE SEEN) Urine White Blood Cell Casts None seen (NONE SEEN) Urine Mucus Present (None Seen) Urine Trichomonas None seen (NONE SEEN) Urine Yeast None (NONE SEEN) Urinalysis Comment None Urine Culture Reflexed Indicated Urine Random Porphobilinogen 3.8mg/L (0.0-2.0) Hemoglobin A1c 5.6% (4.8-5.6) Total Creatine Kinase 66U/L (21-215) Creatine Kinase MB 3.3ng/mL (0.0-5.3) Creatine Kinase MB % % (0.0-5.0) Triglycerides Level 88mg/dL (0-149) Cholesterol Level 142mg/dL (100-199) LDL Cholesterol, Calculated 73.400mg/dL (0-99) VLDL Cholesterol 17.600mg/dL HDL Cholesterol 51mg/dL (>39) Cholesterol/HDL Ratio 2.78 (0.0-4.4) Test 04/06/16 18:40 04/07/16 05:30 04/08/16 05:30 04/08/16 05:35 Magnesium Level 1.9mg/dL (1.6-2.6) Thyroid Stimulating Hormone (TSH) 18.650uIU/mL (0.450-4.500) Troponin T 0.010ug/L (0.0-0.011) Free Thyroxine 0.99ng/dL (0.82-1.77) Procalcitonin < 0.05ng/mL (See Comment) Test 04/09/16 05:57 04/10/16 05:20 Total Bilirubin 0.6mg/dL (0.0-1.2) Aspartate Amino Transf (AST/SGOT) 22U/L (0-50) Alanine Aminotransferase (ALT/SGPT) 19U/L (0-32) Alkaline Phosphatase 71U/L (25-165) Total Protein 6.3g/dL (6.4-8.4) Albumin 3.3g/dL (3.4-5.0) White Blood Count 6.3th/mm3 (3.8-10.1) Red Blood Count 3.76mil/mm3 (3.90-5.20) Hemoglobin 10.3g/dL (12.0-15.6) Hematocrit 33.0% (35.0-46.0) Mean Corpuscular Volume 87.8fL (81-100) Mean Corpuscular Hemoglobin 27.4pg (27.0-35.0) Mean Corpuscular Hemoglobin Concent 31.2% (32.0-37.0) Red Cell Distribution Width 14.9% (12.3-15.4) Platelet Count 231bil/L (150-400) Sodium Level 140mEq/L (134-144) Potassium Level 4.6mEq/L (3.5-5.2) Chloride Level 105mEq/L (97-108) Carbon Dioxide Level 23mmol/L (18-29) Blood Urea Nitrogen 27mg/dL (8-27) Creatinine 1.02mg/dL (0.57-1.00) Estimat Glomerular Filtration Rate 74mL/min (>59) Glucose Level 103mg/dL (60-99) Calcium Level 8.3mg/dL (8.5-10.1) Discharge Medications Discharge Medications Aspirin Chew (Aspirin Chew) 81 Mg Chew 81 MG PO DAILY Prescribed by: JUDAH WOLF DO Diltiazem ER (Cardizem CD) 120 Mg Cap.er.24h 120 MG PO DAILY Prescribed by: JUDAH WOLF DO Furosemide (Furosemide) 20 Mg Tab 20 MG PO DAILY Prescribed by: JUDAH WOLF DO Lisinopril (Lisinopril) 5 Mg Tablet 2.5 MG PO DAILY Prescribed by: JUDAH WOLF DO Metoprolol Succinate ER (Metoprolol Succinate ER) 25 Mg Tab.er.24h 25 MG PO DAILY Prescribed by: JUDAH WOLF DO Followup Plan Disposition: Stable discharged to [facility] Follow-up plan Be sure and call Dr. Mello with an updated as to how your doing in 1 week and schedule a follow up appointment with his office. Your TSH levels were elevated which may be suggestive of hypothyroid disease. Please follow up with your PCP for furher work up. This may be elevated because of your recent infection and new diagnosis of CHF and afib. Please follow up with your PCP to have this worked up as an outpatient. Discharge Diet: Heart Healthy Discharge Activity: No restrictions Follow-up Provider: Candice Deluna DO Follow-up with PCP in: 3 weeks (May 06 at 3:15pm) Provider: Aaron Mello MD Follow-up in: 2 weeks Time spent Greater than 35 minutes copies to: Candice Deluna Precious L DO Apr 10, 2016 12:16
[2016-04-10 13:40] VITALS: BP 112/68; PULSE 64; RESP 16; O2SAT 98
--- NOTE | 2016-04-10 13:51 | NUR ---
Social Work: Discharge Data: Pt is on day 6 of hospitalization. EMR reviewed. D/C orders are in. UR specialist set up transportation for 2:00pm. MAINTENANCE SCHEDULER notified ISIDORO, RN, pt, and pt's grandson. No further d/c planning needs at this time. MAINTENANCE SCHEDULER will continue to follow if needs arise. Assessment: Pt who is independent at baseline. Plan: Pt will d/c to [facility] at 2:00pm today. No further d/c planning needs at this time. MAINTENANCE SCHEDULER will continue to follow if needs arise. AMELIA Blake
--- NOTE | 2016-04-10 16:35 | NUR ---
Discharge Pt d/c to [facility] at 1410 via by staff from . telephone report called to nurse Rut. Pt denied pain. IV and tele d/c prior to leaving. All personal belongings left with pt. VSS.
== END 2016-04-10 14:29 | DRG 866 ==
LOC: SED 10:21 → MPC 14:04 → OBSVTOIN 14:04
PROVIDERS: ADMIT Internal Medicine; ATTEND Internal Medicine
PROC: 7W06X1Z Osteopathic Treatment of Lower Extremities using Fascial Release (ICD-10-PCS; principal; 2016-04-07)
PROC: 7W02X1Z Osteopathic Treatment of Thoracic Region using Fascial Release (ICD-10-PCS; 2016-04-07)
PROC: 7W04X1Z Osteopathic Treatment of Sacrum using Fascial Release (ICD-10-PCS; 2016-04-07)
PROC: 7W03X1Z Osteopathic Treatment of Lumbar Region using Fascial Release (ICD-10-PCS; 2016-04-07)
DX: B34.8 Other viral infections of unspecified site (principal); E80.21 Acute intermittent (hepatic) porphyria; I50.32 Chronic diastolic (congestive) heart failure; M54.9 Dorsalgia, unspecified; I34.0 Nonrheumatic mitral (valve) insufficiency; I27.2 Other secondary pulmonary hypertension; E03.9 Hypothyroidism, unspecified; I48.91 Unspecified atrial fibrillation; Z85.41 Personal history of malignant neoplasm of cervix uteri; Z87.891 Personal history of nicotine dependence; Z85.3 Personal history of malignant neoplasm of breast

== ENCOUNTER 2016-04-15 19:03 | Inpatient (IN) | payer MEDICARE ==
[2016-04-15] VITALS (10 sets, daily range): BP systolic 101–124; BP diastolic 56–76; PULSE 64–110; RESP 18–32; O2SAT 96–100
[~2016-04-15] VITALS: Ht 167.6 cm; Wt 71.5 kg
[~2016-04-15 19:03] MED LIST: ASPI81TA3 PO; DILT120C83 PO; FUR20 PO; LISI-571 PO; METO25TA99 PO
[2016-04-15 19:38] LABS: BASOPHILS % (AUTO) 0.8 % (0-3); EOSINOPHILS % (AUTO) 4.3 % (0-5); MONOCYTES % (AUTO) 8.7 % (4-12); Mean Corpuscular Hemoglobin 27.8 pg (27.0-35.0); Mean Corpuscular Volume 89.5 fL (81-100); NEUTROPHILS % (AUTO) 52.2 % (40-74); Platelet Count 334 bil/L (150-400)
--- NOTE | 2016-04-15 19:38 | ABG ---
DateTimeAnalyzed 19:32:00 -_ pH ____7.275 - 7.350 7.450 pCO2 ___43.6__ -mmHg 35.0 45.0 pO2 ___91.5__ -mmHg 69.0 116 HCO3- ___19.6__ -mmol/L 22.0 26.0 ABE ___-6.5__ -mmol/L -2.0 2.0 tHb ___11.5__ -g/dL O2Hb ___93.5__ -% COHb ____1.1__ -% MetHb ____0.7__ -% sO2 ___95.2__ -% FIO2 ___40.0__ -% Drawn By MD - Date/Time Notified____ 19:37:00 -_ Notified By MD - Notified Whom __DR BEIA - B 754 -mmHg tO2 ___15.2__ -Vol% Triston test _Positive -
--- NOTE | 2016-04-15 20:17 | DRSVH ---
PROCEDURE: X-RAY CHEST ONE VIEW, PORTABLE ([id number]) INDICATIONS: SHORT OF BREATH TECHNIQUE: One view of the chest was acquired. COMPARISON: [facility], CR, XR CHEST 2VW, 04/04/2016, 11:09. FINDINGS: Surgical changes and devices: None. Lungs and pleura: Bilateral interstitial infiltrates. There is a small left pleural effusion with le ft basilar consolidation or atelectasis. No pneumothorax. Mediastinum: Mediastinal contours appear normal. Heart size is normal. Bones and chest wall: No suspicious bony lesions. Overlying soft tissues appear unremarkable. IMPRESSION: 1. Small left pleural effusion with left basilar pneumonia and/or atelectasis. 2. Bilateral diffuse interstitial infiltrates may be secondary to superimposed pulmonary edema. Recom mend clinical correlation. Dictated by: Geno Pate M.D. on 04/15/2016 at 20:14 Approved by: Geno Pate M.D. on 04/15/2016 at 20:16
[2016-04-15 20:20] LABS: TROPONIN T < 0.010 ug/L (0.0-0.011)
--- NOTE | 2016-04-15 20:39 | ED.REPORT ---
HPI-Dyspnea / Wheezing Date of Service Apr 15, 2016 ED Provider: Dr. Narayan Potter D.O. An 85 year old female with a medical history including porphyria, cancer, atrial fibrillation, CHF, and hypertension presents to the ED via EMS from [facility] in respiratory distress onset just prior to arrival. Associated symptoms include shortness of breath, wheezing, and confusion. EMS found her hypoxic with O2 sats of 80% on room air. She was placed on BiPAP on arrival. The patient was recently discharged from the hospital on 04/10/16 after a one week stay for rhinovirus, new onset atrial fibrillation, and new onset CHF. Nursing Notes Stated Complaint: SOB Chief Complaint: Respiratory Distress Nursing Notes Reviewed: Yes Allergies: Coded Allergies: Barbiturates (Verified Allergy, Unknown, 04/04/16) Scheduled Aspirin Chew (Aspirin Chew) 81 Mg Chew 81 MG PO DAILY Diltiazem ER (Cardizem CD) 120 Mg Cap.er.24h 120 MG PO DAILY Furosemide (Furosemide) 20 Mg Tab 20 MG PO DAILY Lisinopril (Lisinopril) 5 Mg Tablet 2.5 MG PO DAILY Metoprolol Succinate ER (Metoprolol Succinate ER) 25 Mg Tab.er.24h 25 MG PO DAILY Scheduled PRN Acetaminophen (Acetaminophen) 325 Mg Tablet 650 MG PO Q4H PRN PRN For Fever General Time Seen by MD: 20:39 Chief Complaint Other (Respiratory Distress ) Hx Obtained From: Patient, EMS Arrived By: Ambulance Sudden in Onset?: No Onset Occurred: Just prior to arrival Symptom Duration: Since onset Severity: Current: No pain currently Severity: Maximum: No pain Associated with: Reports: Wheeze, Denies: Fever Pertinent Negative: Relieved by nothing Context Related History: Reports: Congestive heart failure Recent Healthcare: Recent hospitalization Similar Sx Previous: Yes Past Medical History Past Medical History Notes: Past Medical History Acute intermittent porphyria Cervical cancer and breast cancer status post radial mastectomy, LN dissection Atrial fibrillation CHF Hypertension Past Surgical History Radial mastectomy, LN dissection Appendectomy Family History Daughter also has Porphyria dad of heart attack Mother had brain aneurysm Smoking History Former Smoker Social History Alcohol Use: Denies alcohol use Drug Use: Denies drug use Ambulatory Status Independent Review of Systems Review of Systems Note: + respiratory distress, hypoxia (80% on room air) Constitutional: Denies: Fever Respiratory: Reports: Shortness of breath, Wheezing Complete sys rev & neg: except as marked. GI: Denies: Diarrhea, Vomiting Neurologic: Reports: Confusion Physical Exam Physical Exam Notes: Initial Vital Signs Vital Signs (First) Date Time Temp Pulse Resp B/P Pulse Ox O2 Delivery O2 Flow Rate FiO2 04/15/16 19:11 36.0 110 32 124/56 99 Non-Rebreather 04/15/16 19:20 40 Initial VS: Reviewed Head / Eyes: Atraumatic, Normocephalic ENT: Conjunctiva normal, No scleral icterus Abdomen / GI: Soft, Non-tender Extremities: Vascular intact, Neuro intact, No swelling Skin: Warm, Dry, No cyanosis Neurologic: Alert, Oriented, Nonfocal Psychiatric: Mood/affect normal, Behavior normal, Normal thought content General/Constitutional: Awake, Alert Conversant Respiratory / Chest: Breath sounds = bilat Crackles bilateral lung bases Respiration rate < 20 On BiPAP Cardiovascular: Regular rhythm, Heart sounds NL Heart Sounds / Murmur: Positive: Murmur present... (Systolic ejection) Interpretation & Diagnostics Interpretation & Diagnostics: INFLUENZA NEGATIVE ARTERIAL BLOOD GAS REPORT 19:25 pH 7.275 pCO2 44 pO2 91.5 cHCO3 19.6 cBase -6.5 Lab Results Interpretation Result Diagram: 04/16/16 0235 04/16/16 0235 Test 04/15/16 19:20 Hold Flores Top Tube Received (Received) ECG Interpretation ECG Interpretation: Atrial fibrillation rate 87 Time: 19:40 Interpreted by: ED physician X-Ray Chest Interpretation Chest Xray Interpretation: IMPRESSION: 1. Small left pleural effusion with left basilar pneumonia and/or atelectasis. 2. Bilateral diffuse interstitial infiltrates may be secondary to superimposed pulmonary edema. Recommend clinical correlation. Dictated by: Geno Pate M.D. on 04/15/2016 at 20:14 View: Portable, 1 view Re-Eval/Medical Decision Source of Hx: Old records Re-Evaluation/Progress : Time of Eval: 22:30 Patient Status: Condition improved Re-Evaluation/Progress Note: Patient is breathing much better. Discussed with patient x-ray results, diagnosis, and plan for admit. Patient agrees with plan for care and all questions were addressed. Consultation : Referral / Consult Name: Hleio Mckeon MD Consulted With: Hospitalist Call Returned at: 22:45 Cement Tile Maker: Agrees with eval, Agrees with plan, Accepts admit Counseled Regarding: Diagnosis, Lab results, Need for admission Discharge & Departure Impression: Primary Impression: Pneumonia Pneumonia type: due to unspecified organism Laterality: left Lung location : lower lobe of lung Qualified Code: J18.9 - Pneumonia, unspecified organism Additional Impression: Pleural effusion Disposition: ADMITTED TO HOSPITAL Discharge Condition All VS Reviewed: Yes Condition: Improved Referrals: NOPCP (PCP) Scribe Attestation Portions of this note were transcribed by Esther Nolan. I, Dr. Potter, personally performed the history, physical exam, and medical decision-making; I reviewed and confirmed the accuracy of the information in the transcribed note. Signed by: Katy Jernigan, 04/15/2016, 23:45 Narayan Potter DO Apr 15, 2016 20:39 ESTHER NOLAN Apr 15, 2016 21:04 Estimat Glomerular Filtration Rate 68mL/min (>59) Glucose Level 274mg/dL (60-99) Calcium Level 8.6mg/dL (8.5-10.1) Total Bilirubin 0.5mg/dL (0.0-1.2) Aspartate Amino Transf (AST/SGOT) 27U/L (0-50) Alanine Aminotransferase (ALT/SGPT) 26U/L (0-32) Alkaline Phosphatase 82U/L (25-165) Troponin T < 0.010ug/L (0.0-0.011) Pro-B-Type Natriuretic Peptide 2742pg/mL (0-738) Total Protein 7.3g/dL (6.4-8.4) Albumin 3.4g/dL (3.4-5.0) Hold Flores Top Tube Received (Received) ECG Interpretation ECG Interpretation: Atrial fibrillation rate 87 Time: 19:40 Interpreted by: ED physician X-Ray Chest Interpretation Chest Xray Interpretation: IMPRESSION: 1. Small left pleural effusion with left basilar pneumonia and/or atelectasis. 2. Bilateral diffuse interstitial infiltrates may be secondary to superimposed pulmonary edema. Recommend clinical correlation. Dictated by: Geno Pate M.D. on 04/15/2016 at 20:14 View: Portable, 1 view Re-Eval/Medical Decision Source of Hx: Old records Re-Evaluation/Progress : Time of Eval: 22:30 Patient Status: Condition improved Re-Evaluation/Progress Note: Patient is breathing much better. Discussed with patient x-ray results, diagnosis, and plan for admit. Patient agrees with plan for care and all questions were addressed. Consultation : Referral / Consult Name: Helio Mckeon MD Consulted With: Hospitalist Call Returned at: 22:45 Cement Tile Maker: Agrees with eval, Agrees with plan, Accepts admit Counseled Regarding: Diagnosis, Lab results, Need for admission Discharge & Departure Impression: Primary Impression: Pneumonia Pneumonia type: due to unspecified organism Laterality: left Lung location : lower lobe of lung Qualified Code: J18.9 - Pneumonia, unspecified organism Additional Impression: Pleural effusion Disposition: ADMITTED TO HOSPITAL Discharge Condition All VS Reviewed: Yes Condition: Improved Referrals: NOPCP (PCP) Scribe Attestation Portions of this note were transcribed by Esther Nolan. I, Dr. Potter, personally performed the history, physical exam, and medical decision-making; I reviewed and confirmed the accuracy of the information in the transcribed note. Signed by: Katy Jernigan, 04/15/2016, 23:45 Narayan Potter DO Apr 15, 2016 20:39 ESTHER NOLAN Apr 15, 2016 21:04
[2016-04-15] MEDS ORDERED: Albuterol-Ipratropium 3 mL Inhalation Solution NEB ONE (20:45)
[2016-04-15] MEDS ORDERED: Piperacillin-Tazo 3.375 Gm Inj 3.375 GM in Dextrose 5% Minibag Plus 50 ML IV SCH (21:30)
[2016-04-15] MEDS ORDERED: fentaNYL-PF 50 mCg/mL 2 mL Inj IVPUSH ONE (21:45)
[2016-04-15] MEDS ORDERED: ACET325T51 PO (22:15)
[2016-04-15] MEDS ORDERED: Ondansetron 2 mg/mL 2 mL Inj IVPUSH PRN (22:55)
[2016-04-15] MEDS ORDERED: Alum-Mag Hydrox-Simeth 30 mL Suspension PO PRN (22:55)
[2016-04-15 23:32] LABS: APPEARANCE,URINE SLIGHTLY CLOUDY (CLEAR,HAZY); COLOR,URINE YELLOW (YELLOW)
[2016-04-15 23:33] LABS: OCCULT BLOOD,URINE NEGATIVE (NEGATIVE); UROBILINOGEN,URINE NORMAL (NORMAL)
[2016-04-16] VITALS (11 sets, daily range): BP systolic 104–176; BP diastolic 59–97; PULSE 62–104; RESP 15–32; O2SAT 91–100
--- NOTE | 2016-04-16 00:16 | PCM.HPMED ---
Subjective Date of Service Apr 15, 2016 Primary Provider: Admitting Physician: Helio Mckeon MD Primary Care Physician: Tai Attending Physician: Helio Mckeon MD Admit Status: From the Emergency Department Chief Complaint: Respiratory distress History of Present Illness: 85-year-old female with history of porphyria diagnosed 30 years ago, who presented with acute on chronic SOB, acute respiratory distress, and rapid heart rate she describes as her heart beating out of her chest. She was recently admitted to [facility] on 04/04/2016 and discharged on 04/10/2016 for similar symptoms, but also had cough at that time. She was initially diagnosed with pneumonia and started on Levaquin, however blood cultures were negative flu swab was negative strep Legionella were negative. She was (+) rhinovirus. And oral antibiotics stopped. During that admission she was diagnosed with new onset A. fib and EKG, and placed on aspirin 81 mg daily, diltiazem 120 mg daily addition to metoprolol succinate 25 mg daily. Patient had echo done which showed diastolic heart failure with ejection fraction of 70- 75%, and was placed on Lasix 20 mg daily. Patient has been complaining of back pain since her initial hospitalization that she attributes to her bed. Patient denied additional signs or symptoms to include coughing, fever, sore throat, nausea, vomiting, diarrhea, constipation. Vital signs in ED: Initial pulse was 110, blood pressure 124/56, respiratory rate 32, temperature 36, pulse ox 99 on nonrebreather FiO2 of 40. Repeat Vitals were pulse 71 history rate 26, blood pressure 101/64, pulse ox 98 % on Venturi mask with 8 L Hemogram: White blood cells 12.5, hemoglobin 11.9, hematocrit 38.3, platelets 334, Chemistry panel: sodium 141, potassium 4.6, chloride 106, CO2 20, BUN 34, creatinine 1.09 (baseline creatinine on 04/04/2016 was 0.79), glucose 274, proBNP 2742, troponin 0.010 CXR 1. Small left pleural effusion with left basilar pneumonia and/or atelectasis. 2. Bilateral diffuse interstitial infiltrates may be secondary to superimposed pulmonary edema. Recommend clinical correlation. EKG: Showed A. fib/flutter rate of [address] segment or T-wave changes. Review of Systems: A comprehensive review of systems was conducted and was negative except as mentioned in history of present illness. Allergies Coded Allergies: Barbiturates (Verified Allergy, Unknown, 04/04/16) Home Medications Scheduled Aspirin Chew (Aspirin Chew) 81 Mg Chew 81 MG PO DAILY Diltiazem ER (Cardizem CD) 120 Mg Cap.er.24h 120 MG PO DAILY Furosemide (Furosemide) 20 Mg Tab 20 MG PO DAILY Lisinopril (Lisinopril) 5 Mg Tablet 2.5 MG PO DAILY Metoprolol Succinate ER (Metoprolol Succinate ER) 25 Mg Tab.er.24h 25 MG PO DAILY PMH Acute intermittent porphyria Cervical cancer and breast cancer status post radial mastectomy, LN dissection Atrial fibrillation CHF Surgical History Radial mastectomy, LN dissection Appendectomy Family History Daughter also has Porphyria dad of heart attack Mother had brain aneurysm Social History Hx Alcohol Use: No Hx Substance Use: No Smoking Status: Former Smoker Living Arrangement: with Family Exam Vital Signs Vital Sign - Last Date Time Temp Pulse Resp B/P Pulse Ox O2 Delivery O2 Flow Rate FiO2 04/15/16 22:10 71 26 101/64 98 Venturi Mask 8 04/15/16 19:55 40 04/15/16 19:11 36.0 Exam General: Oriented 3 no acute distress resting comfortably in bed HEENT: NC/AT, eyes PERRLA, EOMI, neck supple, nontender no adenopathy no JVD no masses, throat noninjected no erythema, this membranes dry Lungs: No crackles mid to low lung cornelius Heart: Systolic murmur grade 2/6, irregularly irregular rhythm Abdomen: Ecchymoses present, soft, nontender, no masses, no distention Extremities: Pulses present 2 out of 4 and symmetric bilaterally upper/lower extremity no edema Neurologic: Cranial nerves 2-12 grossly neurologically intact, speech intact, hearing intact, Skin: Cool and dry, mucous membranes dry Psychiatric: Cheerful Lab and Diagnostics Result Diagram: 04/15/16191904/15/161919 Additional Diagnostics: Date of Service: 04/15/161920 PROCEDURE: X-RAY CHEST ONE VIEW, PORTABLE ([id number]) INDICATIONS: SHORT OF BREATH TECHNIQUE: One view of the chest was acquired. COMPARISON: [facility], CR, XR CHEST 2VW, 04/04/2016, 11:09. FINDINGS: Surgical changes and devices: None. Lungs and pleura: Bilateral interstitial infiltrates. There is a small left pleural effusion with left basilar consolidation or atelectasis. No pneumothorax. Mediastinum: Mediastinal contours appear normal. Heart size is normal. Bones and chest wall: No suspicious bony lesions. Overlying soft tissues appear unremarkable. IMPRESSION: 1. Small left pleural effusion with left basilar pneumonia and/or atelectasis. 2. Bilateral diffuse interstitial infiltrates may be secondary to superimposed pulmonary edema. Recommend clinical correlation. Dictated by: Geno Pate M.D. on 04/15/2016 at 20:14 Approved by: Geno Pate M.D. on 04/15/2016 at 20:16 Assessment & Plan 85-year-old female with history of porphyria diagnosed 30 years ago, no doctor over 30 years presented with acute on chronic SOB, acute respiratory distress, and rapid heart rate she describes as her heart beating out of her chest. She was recently admitted to [facility] on 04/04/2016 and discharged on 2016 for similar symptoms in addition to a cough. Patient was admitted for acute respiratory distress and tachycardia. # Acute respiratory distress and hypoxia, present on admission, active - Differential diagnosis acute exacerbation of CHF, shortness of breath secondary to A. fib, chronic deconditioning, pneumonia, - She was recently admitted to [facility] on 04/04/2016 and discharged on 04/2016, and had acute on chronic SOB, cough, generalized weakness. - From prior admission 04/04/2016 patient was diagnosed with rhinovirus blood cultures were negative 48 hours, flu swab was negative, strep/legionella were also negative. - CXR Small left pleural effusion with left basilar pneumonia and/or atelectasis. 2. Bilateral diffuse interstitial infiltrates may be secondary to superimposed pulmonary edema. Recommend clinical correlation. - CXR From prior admit showed mild atypical pneumonia. - Physical exam significant for bilateral crackles mid to low lung cornelius - Continue supplemental oxygen to keep O2 sats greater than 93% - She denies cough, sore throat, congestion - Will consider DuoNeb therapy as needed # Left basilar pneumonia, as on admission, active - Patient was recently hospitalized for pneumonia and treated with Levaquin however was found to be positive for rhinovirus and antibiotic was stopped. All other workup was negative at that time - Pneumonia unlikely given normal white blood cell count and lack of symptomatic cough - Patient denies cough - Pro calcitonin ordered and pending - Blood cultures ordered and pending - Chest x-ray left basilar pneumonia versus atelectasis - Hold antibiotics for now and pending procalcitonin results - Consider further workup with urine strep pneumo and Legionella, PCR viral in the a.m. if patient's Pro-calcitonin is suggestive of pneumonia # Left-sided pleural effusion, present on admission, active - As seen on chest x-ray # Acute Tachycardia present on admission, resolved - Rate on presentation was 110 - Patient heart rate currently 71 - EKG showed A. fib/flutter rate of [address] or T-wave changes # Acute Dehydration, present on admission, - Mucous membranes were dry, skin: Dry, tenting - IV normal saline 100 mL per hour - We will hold furosemide for now given rising creatinine # Acute kidney injury, present on admission, active - Baseline creatinine 0.79 on 04/04/2016 now 1.09 - We will hold lisinopril - Given patient's diastolic heart failure will start normal saline at 100mls/hr - We will hold furosemide for now given rising creatinine #Hyperglycemia, present on admission, active - Blood glucose is 274 in ED - We will start low-dose correctional insulin - Given patient's diastolic heart failure will start normal saline at 100mls/h Other chronic problems # Acute intermittent porphyria, 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 Normal myocardial perfusion images.2. Normal left ventricular volume and systolic function.3. The patient had 8/10 chest pain during Lexiscan infusion. No diagnostic EKG changes for ischemia. - The patient was placed on diltiazem 120 mg daily, metoprolol succinate 25 mg daily, Lasix 20 mg daily, Xeralto 20 mg daily, and lisinopril 2.5 mg daily as recommended by cardiology on discharge from last admit to 04/28/2016. - Dr. Mello band salvager #Diastolic CHF, grade 2, stable -New echo on 04/04/2016 Echocardiogram revealed:1. Grade 2 diastolic dysfunction. 2. EF of 70% to 75%. 3. Moderate to severe pulmonary hypertension. 4. RVSP of 65 mmHg. 5. Moderate to severe mitral regurgitation. 6. Moderate tricuspid regurgitation. Disposition : Admitted to in patient service with expected length of stay greater than 2 days, secondary to severity of presenting symptoms, treatment plan, complexity of clinical work up, and risk of adverse events. CODE STATUS: Full PCP: residency clinic DVT prophylaxis: Pain Evaluation: Adequate Pain Control VTE Prophylaxis: Sub-Q Heparin (Unfractionated) Attending Statement The patient was seen and examined together with Dr. Garcia on 04/15 and I agree with the history, exam and plan as outlined in the note above. Woody Garcia DO Apr 15, 2016 22:31 Helio Mckeon MD Apr 16, 2016 19:09
[2016-04-16] MEDS ORDERED: Alum-Mag Hydrox-Simeth 30 mL Suspension PO PRN (00:20)
[2016-04-16] MEDS ORDERED: Polyethylene Glycol (PEG) 17 Gm Powder PO PRN (00:20)
[2016-04-16] MEDS ORDERED: Glucose 40% Oral Gel 15 Gm Tube PO PRN (00:20)
[2016-04-16] MEDS: Heparin 5,000 Unit/mL Inj SUBQ SCH ×3 (00:40→18:28)
[2016-04-16] MEDS: 0.9% Sodium Chloride 1,000 ML IV SCH ×2 (00:40→10:58)
[2016-04-16 02:42] LABS: BASOPHILS % (AUTO) 0.2 % (0-3); EOSINOPHILS % (AUTO) 0.4 % (0-5); MONOCYTES % (AUTO) 7.6 % (4-12); Mean Corpuscular Hemoglobin 27.8 pg (27.0-35.0); Mean Corpuscular Volume 88.3 fL (81-100); NEUTROPHILS % (AUTO) 77.7 % (40-74); Platelet Count 238 bil/L (150-400)
--- NOTE | 2016-04-16 06:00 | NUR ---
Admit Note Pt admitted with Respiratory Distress, Hypoxia and Pneumonia. Pt arrived via gurney and was transfered by staff to Hospital bed. Pt is A&O X3, moves all extremities. O2 on admit at 5L Oxymask, titrated down slowly to O@ @ 1L Oxymask with SpO2 sats at 97-99% per continuous pulse oximetry. No c/o chest pain, pressure or palpitations, Tele Afib with HR 60-70s per Diesel Motor Mechanic. IV NS infusing at 100 ml/hour per MD orders. Admit blood glucose 115. Flu screen negative in the ED. Urine sample sent to the lab, indicated for culture, awaiting urine culture results. Pt oriented to room, bed, TV, Telephone and call light system. Care ongoing.
[2016-04-16] MEDS: Insulin LISPRO 300 Unit/3 mL Inj SUBQ SCH ×2 (08:00→12:00)
[2016-04-16] MEDS: Piperacillin-Tazo 3.375 Gm Inj 3.375 GM in Dextrose 5% Minibag Plus 50 ML IV SCH ×2 (08:16→20:24)
[2016-04-16] MEDS: MeTOProlol XL 25 mg ER24 Tablet PO SCH (08:18)
[2016-04-16] MEDS: Diltiazem CD 120 mg ER24 Capsule PO SCH (08:18)
--- NOTE | 2016-04-16 09:49 | NUR ---
Social Work: Initial Assessment Data: Pt is an 85 y/o female admitted for respiratory distress, hypoxia, pneumonia. Pt's PCP is not listed. Pt's insurance is [employer]. Readmit score not listed. EMR reviewed, CONSTRUCTION EQUIPMENT TECHNICIAN met with pt at bedside who states she typically lives home alone in a single story home where she uses no DME, but that she came from [facility] for rehab after a recent hospital stay. Pt states she typically drives, has no hx of HH and not other hx of SNF other than this recent [facility] stay. Pt states she has no LTC or VA benefits, and is not a caregiver. Pt states she does not have a DPOA and declined information. Pt reports she is willing to return to [facility] at d/c. CONSTRUCTION EQUIPMENT TECHNICIAN called [facility], no answer, left a message requesting a call back regarding pt and confirming they are able to take pt back at d/c. CONSTRUCTION EQUIPMENT TECHNICIAN awaiting phone call. CONSTRUCTION EQUIPMENT TECHNICIAN will continue to follow. Assessment: Pt who is independent at baseline. Plan: Pt will d/c back to [facility], pending [employer] auth and phone call from [employer] confirming they can have pt return. CONSTRUCTION EQUIPMENT TECHNICIAN awaiting phone call. CONSTRUCTION EQUIPMENT TECHNICIAN will continue to follow. AMELIA Blake Addendum: 04/16/16 at 0954 by ASHLEY VERGARA SS Amended: Links added.
[2016-04-16] MEDS ORDERED: levoFLOXacin 750 mg Tablet PO SCH (14:00)
--- NOTE | 2016-04-16 15:09 | PCM.PNMED ---
Subjective Date of Service Apr 16, 2016 Subjective Patient was examined at bedside today. Patient denies any chest pain, shortness of breath, nausea, vomiting, diarrhea. Patient is complaining of occasional palpitations which seem to have improved since yesterday. Exam Vital Signs Vital Sign - Last Date Time Temp Pulse Resp B/P Pulse Ox O2 Delivery O2 Flow Rate FiO2 04/16/16 12:19 36.9 84 15 123/80 98 Nasal Cannula 1.00 04/15/16 19:55 40 Intake and Output 04/15/16 04/15/16 04/16/16 Cumulative From/Thru 15:00 23:00 07:00 04/15/16 19:11 - 04/16/16 04:32 Intake Total 261 ml 261 ml Output Total 100 ml 100 ml Balance 161 ml 161 ml Intake Oral 0 ml 0 ml IV Total 261 ml 261 ml Output Urine Total 100 ml 100 ml # Voids 0 1 1 # Bowel Movements 0 0 Exam Physical Exam: GEN: Patient was awake, alert, responding appropriately to questions HEENT: PERRLA, EOMI, Neck soft supple, trachea midline, nomocephalic/atraumatic CV: +S1/S2, irregular, systolic murmurs auscultated Respiratory: CTAB, no wheezes, rales, rhonchi GI: +bowel sounds x4, soft, compressible, non TTP EXT: no c/c/e Neuro: CN II-XII grossly intact Psych: mood and affect were appropriate IVs and Medications Medications Reviewed: Medications were reviewed in detail Medications Current Medications Piperacillin Sod/ Tazobactam Sod/ Dextrose/Water 50 ml @ 12.5 mls/hr Q8H IV Last administered on 04/15/16t 21:30; Admin Dose 12.5 MLS/HR; Start 04/15/16 at 21 :30; Stop 04/16/16 at 01:31; Status DC Al Hydrox/Mg Hydrox/Simethicone 30 ml Q6 PRN PO; Start 04/15/16 at 22:55; Stop 04/16/16 at 00:26; Status DC Ondansetron HCl Dose range: 4 mg to 8 mg Q4H PRN IVPUSH; Start 04/15/16 at 22:55 ; Stop 04/16/16 at 00:26; Status DC Acetaminophen 975 mg Q6H PRN PO; Start 04/15/16 at 22:55; Stop 04/16/16 at 00:26 ; Status DC Heparin Sodium (Porcine) 5000 unit 5,000 unit Q8 SUBQ Last administered on 08:19; Admin Dose 5,000 UNIT; Start 04/16/16 at 00:30 Sodium Chloride 1,000 ml @ 100 mls/hr Q10H IV Last administered on 04/16/16 10: 58; Admin Dose 100 MLS/HR; Start 04/16/16 at 00:16 Al Hydrox/Mg Hydrox/Simethicone 30 ml Q6H PRN PO; Start 04/16/16 at 00:20 Ondansetron HCl 4 to 8 mg Q4H PRN IVPUSH; Start 04/16/16 at 00:20 Senna 17.2 mg BID PRN PO; Start 04/16/16 at 00:20 Polyethylene Glycol 17 gm DAILY PRN PO; Start 04/16/16 at 00:20 Acetaminophen 650 mg Q4H PRN PO Last administered on 04/16/16 14:41; Admin Dose 650 MG; Start 04/16/16 at 00:20 Insulin Human Lispro Nutritional Dose to be given pr... [facility] SUBQ; Start at 08:00 Aspirin 81 mg DAILY PO Last administered on 04/16/16 08:18; Admin Dose 81 MG; Start 04/16/16 at 08:30 Diltiazem HCl 120 mg DAILY PO Last administered on 04/16/16 08:18; Admin Dose 120 MG; Start 04/16/16 at 08:30 Metoprolol Succinate 25 mg 25 mg DAILY PO Last administered on 04/16/16 08:18; Admin Dose 25 MG; Start 04/16/16 at 08:30 Piperacillin Sod/ Tazobactam Sod/ Dextrose/Water 50 ml @ 12.5 mls/hr Q12H IV Last administered on 04/16/16 08:16; Admin Dose 12.5 MLS/HR; Start 04/16/16 at 07 :30 Levofloxacin 750 mg DAILYAC PO; Start 04/17/16 at 07:30; Stop 04/17/16 at 07:30; Status DC Levofloxacin 750 mg DAILYAC PO; Start 04/16/16 at 14:00 Lab and Diagnostics Result Diagram: 04/16/16 0235 04/16/16 0235 Additional Diagnostics Date of Service: 04/15/161920 PROCEDURE: X-RAY CHEST ONE VIEW, PORTABLE ([id number]) INDICATIONS: SHORT OF BREATH TECHNIQUE: One view of the chest was acquired. COMPARISON: [facility], CR, XR CHEST 2VW, 04/04/2016, 11:09. FINDINGS: Surgical changes and devices: None. Lungs and pleura: Bilateral interstitial infiltrates. There is a small left pleural effusion with left basilar consolidation or atelectasis. No pneumothorax. Mediastinum: Mediastinal contours appear normal. Heart size is normal. Bones and chest wall: No suspicious bony lesions. Overlying soft tissues appear unremarkable. IMPRESSION: 1. Small left pleural effusion with left basilar pneumonia and/or atelectasis. 2. Bilateral diffuse interstitial infiltrates may be secondary to superimposed pulmonary edema. Recommend clinical correlation. Dictated by: Geno Pate M.D. on 04/15/2016 at 20:14 Approved by: Geno Pate M.D. on 04/15/2016 at 20:16 Assessment & Plan 85-year-old female with history of porphyria diagnosed 30 years ago, no doctor over 30 years presented with acute on chronic SOB, acute respiratory distress, and rapid heart rate she describes as her heart beating out of her chest. She was recently admitted to [facility] on 04/04/2016 and discharged on 2016 for similar symptoms in addition to a cough. Patient was admitted for acute respiratory distress and tachycardia. Acute respiratory distress and hypoxia, present on admission, active - Differential diagnosis acute exacerbation of CHF, shortness of breath secondary to A. fib, chronic deconditioning, pneumonia, - CXR Small left pleural effusion with left basilar pneumonia and/or atelectasis. 2. Bilateral diffuse interstitial infiltrates may be secondary to superimposed pulmonary edema. Recommend clinical correlation. -We will treat for pneumonia as patient's procalcitonin is elevated at 0.37 in the chest x-ray does look to have a possible interstitial infiltrate -Follow up viral PCR - CXR From prior admit showed mild atypical pneumonia. - Continue supplemental oxygen to keep O2 sats greater than 92% - Will consider DuoNeb therapy as needed Left basilar pneumonia, as on admission, active - Pro calcitonin elevated at 0.37 - Blood cultures pending - Chest x-ray left basilar pneumonia versus atelectasis - Continue Zosyn - Urine currently negative for strep pneumo and legionella final urine cultures pending, procalcitonin elevated, viral PCR pending Acute on chronic A. fib present on admission currently rate controlled - Rate on admission was 110 - Patient heart rate currently 84 - EKG showed A. fib/flutter rate of [address] or T-wave changes on admission -Consult PT -We will continue to monitor Acute Dehydration, present on admission, (resolving) - Discontinue IV normal saline 100 mL per hour -Continue to hold hold furosemide creatinine normalizing will restart as medically necessary for patient's CHF Acute kidney injury, present on admission, (resolving) - Creatinine on admission 1.09 currently 0.87 -Continue to hold lisinopril -Patient responded well to IV fluid resuscitation - We will continue to hold furosemide for now given rising creatinine Hyperglycemia, present on admission, (resolving) - Blood glucose is 274 in ED - Hold low-dose correctional insulin -Patient last hemoglobin A1c 5.6 on 04/06/2016 Other chronic problems # Acute intermittent porphyria, 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 Normal myocardial perfusion images.2. Normal left ventricular volume and systolic function.3. The patient had 8/10 chest pain during Lexiscan infusion. No diagnostic EKG changes for ischemia. - The patient was placed on diltiazem 120 mg daily, metoprolol succinate 25 mg daily, Lasix 20 mg daily, Xeralto 20 mg daily, and lisinopril 2.5 mg daily as recommended by cardiology on discharge from last admit to 04/28/2016. 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 Grade 2 diastolic dysfunction. 2. EF of 70% to 75%. 3. Moderate to severe pulmonary hypertension. 4. RVSP of 65 mmHg. 5. Moderate to severe mitral regurgitation. 6. Moderate tricuspid regurgitation. Disposition: Patient is currently progressing well. We will continue to monitor patient for further signs of infection. This may also be due to a CHF exacerbation as the patient has been recently diagnosed. It could also be secondary to dehydration as the patient has recently been started on Lasix daily. We will continue to monitor the patient for daily progression. CODE STATUS: Full PCP: residency clinic DVT prophylaxis: VTE Prophylaxis: Sub-Q Heparin (Unfractionated) Time spent Greater than 35 minutes Nicolasa Mobley DO Apr 16, 2016 14:01
[2016-04-16] MEDS ORDERED: Albuterol-Ipratropium 3 mL Inhalation Solution ONE (15:53)
[2016-04-16] MEDS ORDERED: Furosemide 10 mg/mL 2 mL Inj ONE (16:02)
[2016-04-16] MEDS: Ondansetron 2 mg/mL 2 mL Inj IVPUSH PRN ×2 (16:30→20:33)
--- NOTE | 2016-04-16 16:30 | NUR ---
Respiratory distress pt noted to have respiratory distress, restlessness. skin cool and calmy. lung sounds with increase courseness. Oxygen needs increased to 6L oxymask to sat mid to high 90s. Telemetry unchanged( afib 100s). Blood glucose 175. RT referenced, MD informed. RT tx ordered. MD in to see patient. meds given as ordered. will continue to monitor.
--- NOTE | 2016-04-16 17:38 | DRSVH ---
PROCEDURE: X-RAY CHEST ONE VIEW, PORTABLE ([id number]) INDICATIONS: shortness of breath TECHNIQUE: One view of the chest was acquired. COMPARISON: [facility], CR, XR CHEST 1VW (PORTABLE), 04/15/2016, 19:36. FINDINGS: Surgical changes and devices: None. Lungs and pleura: Trace bilateral pleural fluid collections are noted. Cephalization of pulmonary v asculature and interstitial prominence consistent with CHF noted. Increased opacification of the lef t lung base which could represent atelectasis, pneumonia or aspiration. Mediastinum: Mediastinal contours appear normal. Heart size is normal. Bones and chest wall: No suspicious bony lesions. Overlying soft tissues appear unremarkable. IMPRESSION: 1. CHF. 2. Trace bilateral pleural effusions. 3. Left basilar opacification compatible with atelectasis, pneumonia or aspiration. Dictated by: Esther Foley MD, PhD on 04/16/2016 at 17:34 Approved by: Esther Foley MD, PhD on 04/16/2016 at 17:36
[2016-04-17] VITALS (10 sets, daily range): BP systolic 100–117; BP diastolic 67–81; PULSE 65–91; RESP 14–20; O2SAT 96–99
[2016-04-17] MEDS: Heparin 5,000 Unit/mL Inj SUBQ SCH ×4 (00:19→23:40)
[2016-04-17 02:51] LABS: Mean Corpuscular Hemoglobin 27.3 pg (27.0-35.0); Mean Corpuscular Volume 88.5 fL (81-100)
--- NOTE | 2016-04-17 06:04 | NUR ---
Somnolent / Nausea / Weaned O2 / Nebs. Pt somnolent but arousable tonight, Pt perked up mid shift for a couple of hours then fell back to sleep. Mild nausea w/o emisis at the beginning of the shift, medicated with IV Zofran 4 mg with and nausea resolved with no further c/o nausea all night. No c/o chest pain, Tele Afib 60-90s for most of the night, murmur heard per auscultation. 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 Duo-Neb orders Q 4 hour while awake. VS stable and afebrile.
[2016-04-17] MEDS ORDERED: levoFLOXacin 750 mg Tablet PO SCH (07:30)
[2016-04-17] MEDS ORDERED: 0.9% Sodium Chloride 500 ML IV ONE (08:15)
[2016-04-17] MEDS: MeTOProlol XL 25 mg ER24 Tablet PO SCH (09:49)
[2016-04-17] MEDS: Diltiazem CD 120 mg ER24 Capsule PO SCH (09:49)
[2016-04-17] MEDS: Piperacillin-Tazo 3.375 Gm Inj 3.375 GM in Dextrose 5% Minibag Plus 50 ML IV SCH (09:49)
--- NOTE | 2016-04-17 10:28 | NUR ---
Spoke with Denisse Howell CM at [facility] [phone], asked for review of SNF transfer. Patient is likely to be ready in 1-2 days and we will would like to have [facility] start looking now. 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
[2016-04-17] MEDS: Albuterol-Ipratropium 3 mL Inhalation Solution NEB PRN (12:07)
[2016-04-17] MEDS ORDERED: 0.9% Sodium Chloride 250 ML ONE (14:03)
--- NOTE | 2016-04-17 15:18 | NUR ---
Evaluation completed. Please go to "Notes" then click on "Assessments and Notes" (bottom left corner of screen). Then select appropriate discipline tab on top of screen.
--- NOTE | 2016-04-17 15:55 | PCM.PNMED ---
Subjective Date of Service Apr 17, 2016 Subjective Patient was examined at bedside today. Patient denies any chest pain, nausea, vomiting, diarrhea. Patient still reports shortness of breath however she states that her palpitations have improved significantly. Exam Vital Signs Vital Sign - Last Date Time Temp Pulse Resp B/P Pulse Ox O2 Delivery O2 Flow Rate FiO2 04/17/16 12:16 36.6 87 14 113/70 99 Nasal Cannula 3.00 04/15/16 19:55 40 Intake and Output 04/16/16 04/16/16 04/17/16 Cumulative From/Thru 15:00 23:00 07:00 04/15/16 19:11 - 04/17/16 04:36 Intake Total 440 ml 340 ml 1041 ml Output Total 200 ml 2 ml 302 ml Balance 240 ml 338 ml 739 ml Intake Oral 440 ml 250 ml 690 ml IV Total 90 ml 351 ml Output Urine Total 200 ml 2 ml 302 ml # Voids 2 3 # Bowel Movements 0 0 Exam Physical Exam: GEN: Patient was awake, alert, responding appropriately to questions HEENT: PERRLA, EOMI, Neck soft supple, trachea midline, nomocephalic/atraumatic CV: +S1/S2, RRR, systolic murmurs auscultated Respiratory: CTAB, no wheezes, rales, rhonchi GI: +bowel sounds x4, soft, compressible, non TTP EXT: no c/c/e Neuro: CN II-XII grossly intact Psych: mood and affect were appropriate IVs and Medications Medications Reviewed: Medications were reviewed in detail Medications Current Medications Piperacillin Sod/ Tazobactam Sod/ Dextrose/Water 50 ml @ 12.5 mls/hr Q8H IV Last administered on 04/15/16t 21:30; Admin Dose 12.5 MLS/HR; Start 04/15/16 at 21 :30; Stop 04/16/16 at 01:31; Status DC Al Hydrox/Mg Hydrox/Simethicone 30 ml Q6 PRN PO; Start 04/15/16 at 22:55; Stop 04/16/16 at 00:26; Status DC Ondansetron HCl Dose range: 4 mg to 8 mg Q4H PRN IVPUSH; Start 04/15/16 at 22:55 ; Stop 04/16/16 at 00:26; Status DC Acetaminophen 975 mg Q6H PRN PO; Start 04/15/16 at 22:55; Stop 04/16/16 at 00:26 ; Status DC Heparin Sodium (Porcine) 5000 unit 5,000 unit Q8 SUBQ Last administered on 09:49; Admin Dose 5,000 UNIT; Start 04/16/16 at 00:30 Sodium Chloride 1,000 ml @ 100 mls/hr Q10H IV Last administered on 04/16/16 10: 58; Admin Dose 100 MLS/HR; Start 04/16/16 at 00:16; Stop 04/16/16 at 15:08; Status DC Al Hydrox/Mg Hydrox/Simethicone 30 ml Q6H PRN PO; Start 04/16/16 at 00:20 Ondansetron HCl 4 to 8 mg Q4H PRN IVPUSH Last administered on 04/16/16 20:33; Admin Dose 4 MG; Start 04/16/16 at 00:20 Senna 17.2 mg BID PRN PO; Start 04/16/16 at 00:20 Polyethylene Glycol 17 gm DAILY PRN PO; Start 04/16/16 at 00:20 Acetaminophen 650 mg Q4H PRN PO Last administered on 04/16/16 14:41; Admin Dose 650 MG; Start 04/16/16 at 00:20 Insulin Human Lispro Nutritional Dose to be given pr... [facility] SUBQ; Start at 08:00; Stop 04/16/16 at 15:08; Status DC Aspirin 81 mg DAILY PO Last administered on 04/17/16 09:49; Admin Dose 81 MG; Start 04/16/16 at 08:30 Diltiazem HCl 120 mg DAILY PO Last administered on 04/17/16 09:49; Admin Dose 120 MG; Start 04/16/16 at 08:30 Metoprolol Succinate 25 mg 25 mg DAILY PO Last administered on 04/17/16 09:49; Admin Dose 25 MG; Start 04/16/16 at 08:30 Piperacillin Sod/ Tazobactam Sod/ Dextrose/Water 50 ml @ 12.5 mls/hr Q12H IV Last administered on 04/17/16 09:49; Admin Dose 12.5 MLS/HR; Start 04/16/16 at 07 :30 Levofloxacin 750 mg DAILYAC PO; Start 04/17/16 at 07:30; Stop 04/17/16 at 07:30; Status DC Levofloxacin 750 mg DAILYAC PO; Start 04/16/16 at 14:00; Stop 04/16/16 at 15:08; Status DC Albuterol/ Ipratropium 3 ml Q4HWA PRN NEB Last administered on 04/17/16t 12:07; Admin Dose 3 ML; Start 04/17/16 at 04:35 Lab and Diagnostics Result Diagram: 04/17/16 0230 04/17/16 0230 Additional Diagnostics Date of Service: 04/15/161920 PROCEDURE: X-RAY CHEST ONE VIEW, PORTABLE ([id number]) INDICATIONS: SHORT OF BREATH TECHNIQUE: One view of the chest was acquired. COMPARISON: [facility], CR, XR CHEST 2VW, 04/04/2016, 11:09. FINDINGS: Surgical changes and devices: None. Lungs and pleura: Bilateral interstitial infiltrates. There is a small left pleural effusion with left basilar consolidation or atelectasis. No pneumothorax. Mediastinum: Mediastinal contours appear normal. Heart size is normal. Bones and chest wall: No suspicious bony lesions. Overlying soft tissues appear unremarkable. IMPRESSION: 1. Small left pleural effusion with left basilar pneumonia and/or atelectasis. 2. Bilateral diffuse interstitial infiltrates may be secondary to superimposed pulmonary edema. Recommend clinical correlation. Dictated by: Geno Pate M.D. on 04/15/2016 at 20:14 Approved by: Geno Pate M.D. on 04/15/2016 at 20:16 Assessment & Plan 85-year-old female with history of porphyria diagnosed 30 years ago, no doctor over 30 years presented with acute on chronic SOB, acute respiratory distress, and rapid heart rate she describes as her heart beating out of her chest. She was recently admitted to [facility] on 04/04/2016 and discharged on 2016 for similar symptoms in addition to a cough. Patient was admitted for acute respiratory distress and tachycardia. Acute respiratory distress and hypoxia most likely secondary to acute on chronic CHF exacerbation and acute worsening of A. fib, present on admission, active - Differential diagnosis acute exacerbation of CHF, shortness of breath secondary to A. fib, chronic deconditioning, pneumonia, - CXR Small left pleural effusion with left basilar pneumonia and/or atelectasis. 2. Bilateral diffuse interstitial infiltrates may be secondary to superimposed pulmonary edema. Recommend clinical correlation. -We will treat for pneumonia as patient's procalcitonin is elevated at 0.37 in the chest x-ray does look to have a possible interstitial infiltrate -Follow up viral PCR patient is still positive for rhinovirus/enterovirus, urine is negative, influenza screen negative, blood cultures negative 24 hours - Continue supplemental oxygen to keep O2 sats greater than 92% - Will consider DuoNeb therapy as needed Acute on chronic CHF exacerbation -Patient was volume overloaded yesterday and given 20 IV Lasix one-time dose -Patient symptoms seem to be resolving we will continue to monitor Left basilar pneumonia, present on admission, active - Pro calcitonin elevated at 0.37 - Blood cultures negative 24 hours - Chest x-ray left basilar pneumonia versus atelectasis -Discontinue Zosyn as patient's white blood cell count is increasing to 11.9 change patient antibiotics to azithromycin and Levaquin - Urine currently negative for strep pneumo and legionella Acute on chronic A. fib present on admission currently rate controlled - Rate on admission was 110 - Patient heart rate currently 87 - EKG showed A. fib/flutter rate of [address] or T-wave changes on admission -Consult PT -We will continue to monitor Acute Dehydration, present on admission, (resolving) - Patient did look a little dry today after the dose of IV Lasix yesterday we will do gentle hydration with 500 mL bolus oriented at 100 mL an hour. -Continue to hold hold furosemide creatinine normalizing will restart as medically necessary for patient's CHF Acute kidney injury, present on admission, - Creatinine on admission 1.09-->0.87-->1.27 -Continue to hold lisinopril -Patient responded well to IV fluid resuscitation, previously we will do gentle hydration with 500 mL bolus oriented at 100 mL an hour. 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 Normal myocardial perfusion images.2. Normal left ventricular volume and systolic function.3. The patient had 8/10 chest pain during Lexiscan infusion. No diagnostic EKG changes for ischemia. - The patient was placed on diltiazem 120 mg daily, metoprolol succinate 25 mg daily, Lasix 20 mg daily, Xeralto 20 mg daily, and lisinopril 2.5 mg daily as recommended by cardiology on discharge from last admit to 04/28/2016. 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 Grade 2 diastolic dysfunction. 2. EF of 70% to 75%. 3. Moderate to severe pulmonary hypertension. 4. RVSP of 65 mmHg. 5. Moderate to severe mitral regurgitation. 6. Moderate tricuspid regurgitation. Disposition: Patient is currently progressing well. We will continue to monitor patient for further signs of infection. The patient is now currently rate controlled. The patient yesterday may have been volume overloaded however she responded well to a one-time dose of Lasix. The patient does seem to have an increase in her kidney function with the use of Lasix. We will continue to hold the patient's Lasix and continue rate control. The patient while at the [facility] facility most likely was not controlled with her rate and metastases would send her into volume overload and acute exacerbation of CHF. We will continue to treat the patient's pneumonia and monitor and treat her CHF. CODE STATUS: Full PCP: residency clinic DVT prophylaxis: VTE Prophylaxis: Sub-Q Heparin (Unfractionated) Nicolasa Mobley DO Apr 17, 2016 15:55
--- NOTE | 2016-04-17 17:26 | NUR ---
Activity Per physical therapy, they were able to get her up with a 1 person assist to take a few steps and use the bedside commode. She tolerated it well. Care continues.
[2016-04-17] MEDS: levoFLOXacin Inj 750 MG in IV Premix 1 EACH IV SCH (18:00)
[2016-04-18] VITALS (9 sets, daily range): BP systolic 104–120; BP diastolic 64–86; PULSE 83–99; RESP 18–20; O2SAT 91–97
[2016-04-18 04:35] LABS: Mean Corpuscular Hemoglobin 27.2 pg (27.0-35.0); Mean Corpuscular Volume 89.9 fL (81-100)
--- NOTE | 2016-04-18 05:21 | NUR ---
Respiratory / Bowel and Bladder Pt on 3L NC at HS, weaned to 2L NC and tolerated well throughout shift with SpO2 95-97%. Pt denies feeling dyspneic except on exertion, denied any breathing treatments. No acute respiratory episodes this shift. Pt reports no BM since 04/12/16; denies feeling constipated and reports passing gas; states "We'll address that tomorrow, but I'm not worried about it for now." At approx. 0500, pt encouraged to use BSC for output r/t no output produced throughout shift. Pt denied urge to urinate, but agreed to ambulate to BSC; voided approx 500mls spontaneously. Pt encouraged to continue ambulating for recovery. Weak on transfer, but able to ambulate with 1-2PA. VSS. Tele afib 80s.
[2016-04-18] MEDS: Diltiazem CD 120 mg ER24 Capsule PO SCH (09:50)
[2016-04-18] MEDS: MeTOProlol XL 25 mg ER24 Tablet PO SCH (09:50)
[2016-04-18] MEDS: Heparin 5,000 Unit/mL Inj SUBQ SCH ×3 (09:50→23:39)
[2016-04-18] MEDS: levoFLOXacin Inj 750 MG in IV Premix 1 EACH IV SCH (09:50)
--- NOTE | 2016-04-18 12:26 | PCM.PNMED ---
Subjective Date of Service Apr 18, 2016 Subjective Patient was examined at bedside today. Patient denies any chest pain, nausea, vomiting, diarrhea. Patient states that her shortness of breath and palpitations have improved in that overall she is feeling improved. Exam Vital Signs Vital Sign - Last Date Time Temp Pulse Resp B/P Pulse Ox O2 Delivery O2 Flow Rate FiO2 04/18/16 12:10 36.6 96 18 119/86 96 Room Air 04/18/16 09:00 3.00 04/15/16 19:55 40 Intake and Output 04/17/16 04/17/16 04/18/16 Cumulative From/Thru 15:00 23:00 07:00 04/15/16 19:11 - 04/18/16 05:13 Intake Total 1575 ml 322 ml 2938 ml Output Total 400 ml 500 ml 1202 ml Balance 1175 ml -178 ml 1736 ml Intake Oral 940 ml 100 ml 1730 ml IV Total 635 ml 222 ml 1208 ml Output Urine Total 400 ml 500 ml 1202 ml # Voids 1 4 # Bowel Movements 0 0 Exam Physical Exam: GEN: Patient was awake, alert, responding appropriately to questions HEENT: PERRLA, EOMI, Neck soft supple, trachea midline, nomocephalic/atraumatic CV: +S1/S2, irregular, systolic murmurs auscultated Respiratory: Coarse breath sounds, no wheezes, rales, rhonchi GI: +bowel sounds x4, soft, compressible, non TTP EXT: no c/c/e Neuro: CN II-XII grossly intact Psych: mood and affect were appropriate IVs and Medications Medications Reviewed: Medications were reviewed in detail Medications Current Medications Levofloxacin 750 mg DAILYAC PO; Start 04/17/16 at 07:30; Stop 04/17/16 at 07:30; Status DC Levofloxacin 750 mg DAILYAC PO; Start 04/16/16 at 14:00; Stop 04/16/16 at 15:08; Status DC Albuterol/ Ipratropium 3 ml Q4HWA PRN NEB Last administered on 04/17/16 12:07; Admin Dose 3 ML; Start 04/17/16 at 04:35 Azithromycin 500 mg 500 mg DAILY PO Last administered on 04/18/16 09:49; Admin Dose 500 MG; Start 2/9/17 at 15:50 Levofloxacin/ Dextrose/Premix 150 ml @ 100 mls/hr Q24 IV Last administered on t 09:50; Admin Dose 100 MLS/HR; Start 04/17/16 at 16:09 Lab and Diagnostics Result Diagram: 04/18/16 0400 04/18/16 0400 Additional Diagnostics Date of Service: 04/15/16 1921 PROCEDURE: X-RAY CHEST ONE VIEW, PORTABLE ([id number]) INDICATIONS: SHORT OF BREATH TECHNIQUE: One view of the chest was acquired. COMPARISON: [facility], CR, XR CHEST 2VW, 04/04/2016, 11:09. FINDINGS: Surgical changes and devices: None. Lungs and pleura: Bilateral interstitial infiltrates. There is a small left pleural effusion with left basilar consolidation or atelectasis. No pneumothorax. Mediastinum: Mediastinal contours appear normal. Heart size is normal. Bones and chest wall: No suspicious bony lesions. Overlying soft tissues appear unremarkable. IMPRESSION: 1. Small left pleural effusion with left basilar pneumonia and/or atelectasis. 2. Bilateral diffuse interstitial infiltrates may be secondary to superimposed pulmonary edema. Recommend clinical correlation. Dictated by: Geno Pate M.D. on 04/15/2016 at 20:14 Approved by: Geno Pate M.D. on 04/15/2016 at 20:16 Assessment & Plan 85-year-old female with history of porphyria diagnosed 30 years ago, no doctor over 30 years presented with acute on chronic SOB, acute respiratory distress, and rapid heart rate she describes as her heart beating out of her chest. She was recently admitted to [facility] on 04/04/2016 and discharged on 2016 for similar symptoms in addition to a cough. Patient was admitted for acute respiratory distress and tachycardia. Acute respiratory distress and hypoxia most likely secondary to acute on chronic CHF exacerbation and acute worsening of A. fib, present on admission, active - Differential diagnosis acute exacerbation of CHF, shortness of breath secondary to A. fib, chronic deconditioning, pneumonia, - CXR Small left pleural effusion with left basilar pneumonia and/or atelectasis. 2. Bilateral diffuse interstitial infiltrates may be secondary to superimposed pulmonary edema. Recommend clinical correlation. -We will treat for pneumonia as patient's procalcitonin is elevated at 0.37 in the chest x-ray does look to have a possible interstitial infiltrate -Follow up viral PCR patient is still positive for rhinovirus/enterovirus, urine is negative, influenza screen negative, blood cultures negative 24 hours - Continue supplemental oxygen to keep O2 sats greater than 92% - Will consider DuoNeb therapy as needed Acute on chronic CHF exacerbation (stabilizing) -Patient symptoms seem to be resolving we will continue to monitor -Patient has now decreased her oxygen requirements is currently on room air we will continue to monitor Left basilar pneumonia, present on admission, active - Pro calcitonin elevated at 0.37 - Blood cultures negative 2 days - Chest x-ray left basilar pneumonia versus atelectasis - Discontinue Zosyn as patient's white blood cell count is increasing to 11.9 change patient antibiotics to azithromycin and Levaquin - Urine currently negative for strep pneumo and legionella Acute on chronic A. fib present on admission currently rate controlled - Rate on admission was 110 - Patient heart rate currently 83 - EKG showed A. fib/flutter rate of [address] or T-wave changes on admission -Consult PT -We will continue to monitor Acute Dehydration, present on admission, (resolving) - Patient is currently improving however will continue with gentle hydration of 250 mL bolus today at 100 mL an hour. -Continue to hold hold furosemide creatinine normalizing will restart as medically necessary for patient's CHF Acute kidney injury, present on admission, - Creatinine on admission 1.09-->0.87-->1.27-->1.13 -Continue to hold lisinopril -Patient responded well to IV fluid resuscitation, previously we will do gentle hydration with 250 mL bolus at 100 mL an hour. 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 Normal myocardial perfusion images.2. Normal left ventricular volume and systolic function.3. The patient had 8/10 chest pain during Lexiscan infusion. No diagnostic EKG changes for ischemia. - The patient was placed on diltiazem 120 mg daily, metoprolol succinate 25 mg daily, Lasix 20 mg daily, Xeralto 20 mg daily, and lisinopril 2.5 mg daily as recommended by cardiology on discharge from last admit to 04/28/2016. - Dr. Mello simulation developer #Diastolic CHF, grade 2, stable -New echo on 04/04/2016 Echocardiogram revealed:1. Grade 2 diastolic dysfunction. 2. EF of 70% to 75%. 3. Moderate to severe pulmonary hypertension. 4. RVSP of 65 mmHg. 5. Moderate to severe mitral regurgitation. 6. Moderate tricuspid regurgitation. Disposition: Patient is currently progressing well. Patient's pneumonia seems to be improving and patient's white count is also improving currently to 7.7 down from 12.5. The patient is now currently rate controlled for her A. fib. The patient does seem to be a little dry and we will continue to do gentle hydration so as not to exacerbate her CHF. Patient's AKA is also improving with gentle hydration. We will continue to hold the patient's Lasix and continue rate control. The patient will continue to work with physical therapy and appreciate their recommendations. CODE STATUS: Full PCP: residency clinic DVT prophylaxis: VTE Prophylaxis: Sub-Q Heparin (Unfractionated) Nicolasa Mobley DO Apr 18, 2016 12:26
[2016-04-18] MEDS ORDERED: 0.9% Sodium Chloride 250 ML IV ONE (12:30)
--- NOTE | 2016-04-18 13:28 | NUR ---
Left message for CM Eleanor Howell at [facility] regarding patient and potential for d/c over weekend. Asked her to follow up with UR RN Hailee Coyle and let her know about auth or denial. Updated OCEAN EXPORT COORDINATOR
--- NOTE | 2016-04-18 14:38 | NUR ---
NUTRITION ASSESSMENT Assess: 85 yo F w/ acute respiratory distress and hypoxia secondary to CHF exacerbation, and pneumonia. Pt w/ out BM since 04/12. PO intake is fair. Pt improving overall. PMHx: Acute intermittent porphyria, Cervical cancer, Breast cancer, Afib, CHF LABS: Reviewed. Cl 110, Cr 1.13, Ca 8.1, Albumin 2.9 MEDICATIONS: Reviewed. Zofran DIET: Heart Healthy/Consistent Carb, PO bites-50% GI symptoms/stool: No BM recorded Skin integrity: No issues noted; Norberto: 23 ANTHROPOMETRICS: Current Wt: 70.3 kg BMI: 25 kg/[id number] Wt: 70.45 kg IBW: 36.4 kg Recent wt changes: None noted ESTIMATED NEEDS: Calories: 3693-9988 kcal/d (25-30 kcal/kg/d) Protein: 70-85 g/d (1-1.2 g/kg/d) Fluids: 9498-9679 ml/d (25-30 kcal/kg/d) NUTRITION DIAGNOSIS: 1) Inadequate oral intake related to acute illness as evidenced by PO of bites-50%. INTERVENTION: 1) Will send Ensure BID MONITOR/EVALUATE: PO intake, Labs, Wt, GI, Nutrition status, POC. Will follow per moderate nutrition risk guidelines.
--- NOTE | 2016-04-18 15:44 | NUR ---
Case Management Discharge to SNF authorized by Eleanor Shanks with [facility]. Chloé ELEVATOR SUPERVISOR notified of authorization.
--- NOTE | 2016-04-18 18:28 | NUR ---
Shift: VSS, tele Afib, a/o x3. Pt reports no BM since 04/12/16, prune juice given at pt's request, BM this afternoon. Care ongoing.
[2016-04-18] MEDS: Albuterol-Ipratropium 3 mL Inhalation Solution NEB PRN (21:17)
[2016-04-19] VITALS (11 sets, daily range): BP systolic 116–157; BP diastolic 75–99; PULSE 86–103; RESP 18–24; O2SAT 91–100
--- NOTE | 2016-04-19 04:39 | NUR ---
Respiratory Pt on RA at HS, tolerating well with SpO2 92-94%; discussed POC with pt for oxygenation while at rest; pt agreeable to try RA while asleep. No need for supplemental oxygen this shift. VSS. Tele afib 80s-90s. Pt improving in ambulation, able to use BSC with light assist.
[2016-04-19 04:56] LABS: Mean Corpuscular Hemoglobin 27.5 pg (27.0-35.0); Mean Corpuscular Volume 90.5 fL (81-100)
[2016-04-19] MEDS: Albuterol-Ipratropium 3 mL Inhalation Solution NEB PRN ×2 (07:40→16:55)
[2016-04-19] MEDS: levoFLOXacin Inj 750 MG in IV Premix 1 EACH IV SCH (09:07)
[2016-04-19] MEDS: Diltiazem CD 120 mg ER24 Capsule PO SCH (09:10)
[2016-04-19] MEDS: MeTOProlol XL 25 mg ER24 Tablet PO SCH (09:10)
[2016-04-19] MEDS: Heparin 5,000 Unit/mL Inj SUBQ SCH ×2 (10:35→16:30)
--- NOTE | 2016-04-19 11:01 | PCM.PNMED ---
Subjective Date of Service Apr 19, 2016 Subjective Patient was examined at bedside today. Patient denies any chest pain,nausea, vomiting, diarrhea. Patient states that she still has some shortness of breath however this is improving significantly. Exam Vital Signs Vital Sign - Last Date Time Temp Pulse Resp B/P Pulse Ox O2 Delivery O2 Flow Rate FiO2 04/19/16 10:17 Room Air 04/19/16 09:13 36.5 102 20 157/99 94 04/18/16 09:00 3.00 04/15/16 19:55 40 Intake and Output 04/18/16 04/18/16 04/19/16 Cumulative From/Thru 15:00 23:00 07:00 04/15/16 19:11 - 04/19/16 06:18 Intake Total 996 ml 250 ml 4184 ml Output Total 350 ml 2 ml 1554 ml Balance 646 ml 248 ml 2630 ml Intake Oral 598 ml 250 ml 2578 ml IV Total 398 ml 1606 ml Output Urine Total 350 ml 1552 ml Urine/Stool Mix 2 ml 2 ml # Voids 4 # Bowel Movements 2 3 5 Exam Physical Exam: GEN: Patient was awake, alert, responding appropriately to questions HEENT: PERRLA, EOMI, Neck soft supple, trachea midline, nomocephalic/atraumatic CV: +S1/S2, irregular, systolic murmurs auscultated Respiratory: Coarse breath sounds, positive wheezing, no rales or rhonchi GI: +bowel sounds x4, soft, compressible, non TTP EXT: no c/c/e Neuro: CN II-XII grossly intact Psych: mood and affect were appropriate IVs and Medications Medications Reviewed: Medications were reviewed in detail Medications Current Medications Azithromycin 500 mg 500 mg DAILY PO Last administered on 04/19/16 09:11; Admin Dose 500 MG; Start 04/17/16 at 15:50 Levofloxacin/ Dextrose/Premix 150 ml @ 100 mls/hr Q24 IV Last administered on 09:07; Admin Dose 100 MLS/HR; Start 04/17/16 at 16:09 Lab and Diagnostics Result Diagram: 04/19/16 0429 04/19/16 0429 Additional Diagnostics Date of Service: 04/15/161920 PROCEDURE: X-RAY CHEST ONE VIEW, PORTABLE ([id number]) INDICATIONS: SHORT OF BREATH TECHNIQUE: One view of the chest was acquired. COMPARISON: Loc[facility], CR, XR CHEST 2VW, 04/04/2016, 11:09. FINDINGS: Surgical changes and devices: None. Lungs and pleura: Bilateral interstitial infiltrates. There is a small left pleural effusion with left basilar consolidation or atelectasis. No pneumothorax. Mediastinum: Mediastinal contours appear normal. Heart size is normal. Bones and chest wall: No suspicious bony lesions. Overlying soft tissues appear unremarkable. IMPRESSION: 1. Small left pleural effusion with left basilar pneumonia and/or atelectasis. 2. Bilateral diffuse interstitial infiltrates may be secondary to superimposed pulmonary edema. Recommend clinical correlation. Dictated by: Geno Pate M.D. on 04/15/2016 at 20:14 Approved by: Geno Pate M.D. on 04/15/2016 at 20:16 Assessment & Plan 85-year-old female with history of porphyria diagnosed 30 years ago, no doctor over 30 years presented with acute on chronic SOB, acute respiratory distress, and rapid heart rate she describes as her heart beating out of her chest. She was recently admitted to [facility] on 04/04/2016 and discharged on 2016 for similar symptoms in addition to a cough. Patient was admitted for acute respiratory distress and tachycardia. Acute respiratory distress and hypoxia most likely secondary to acute on chronic CHF exacerbation and acute worsening of A. fib, present on admission, active - Differential diagnosis acute exacerbation of CHF, shortness of breath secondary to A. fib, chronic deconditioning, pneumonia, - CXR Small left pleural effusion with left basilar pneumonia and/or atelectasis. 2. Bilateral diffuse interstitial infiltrates may be secondary to superimposed pulmonary edema. Recommend clinical correlation. -We will treat for pneumonia as patient's procalcitonin is elevated at 0.37 in the chest x-ray does look to have a possible interstitial infiltrate -Follow up viral PCR patient is still positive for rhinovirus/enterovirus, urine is negative, influenza screen negative, blood cultures negative 24 hours - Continue supplemental oxygen to keep O2 sats greater than 92% - Will consider DuoNeb therapy as needed Acute on chronic CHF exacerbation (stabilizing) -Patient symptoms seem to be resolving we will continue to monitor -Patient has now decreased her oxygen requirements is currently on room air we will continue to monitor Left basilar pneumonia, present on admission, active - Pro calcitonin elevated at 0.37 - Blood cultures negative 2 days - Chest x-ray left basilar pneumonia versus atelectasis - Discontinue Zosyn as patient's white blood cell count is increasing to 11.9 change patient antibiotics to azithromycin and Levaquin - Urine currently negative for strep pneumo and legionella Acute on chronic A. fib present on admission currently rate controlled - Rate on admission was 110 - Patient heart rate currently 83 - EKG showed A. fib/flutter rate of [address] or T-wave changes on admission -Consult PT -We will continue to monitor Acute Dehydration, present on admission, (resolving) - Patient is currently improving however will continue with gentle hydration of 250 mL bolus today at 100 mL an hour. -Continue to hold hold furosemide creatinine normalizing will restart as medically necessary for patient's CHF Acute kidney injury, present on admission, - Creatinine on admission 1.09-->0.87-->1.27-->1.13 -Continue to hold lisinopril -Patient responded well to IV fluid resuscitation, previously we will do gentle hydration with 250 mL bolus at 100 mL an hour. 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 Normal myocardial perfusion images.2. Normal left ventricular volume and systolic function.3. The patient had 8/10 chest pain during Lexiscan infusion. No diagnostic EKG changes for ischemia. - The patient was placed on diltiazem 120 mg daily, metoprolol succinate 25 mg daily, Lasix 20 mg daily, Xeralto 20 mg daily, and lisinopril 2.5 mg daily as recommended by cardiology on discharge from last admit to 04/28/2016. - Dr. Mello bag adjuster #Diastolic CHF, grade 2, stable -New echo on 04/04/2016 Echocardiogram revealed:1. Grade 2 diastolic dysfunction. 2. EF of 70% to 75%. 3. Moderate to severe pulmonary hypertension. 4. RVSP of 65 mmHg. 5. Moderate to severe mitral regurgitation. 6. Moderate tricuspid regurgitation. Disposition: Patient is currently progressing well. Patient's white blood cell count is now down to normal at 7.5. An patient's acute kidney injury has now resolved with gentle hydration. Patient did have some wheezing today which is new for her we will start her on a five-day course of prednisone 40 mg daily patient stopped taking this medicine on 04/24/2016. Patient should continue with the azithromycin for 2 more days and her last dose of his depression should be on 04/21/2016. Patient has also been on levofloxacin for pneumonia for the last 3 days and should remain on the levofloxacin 750 mg daily for the next 7 days for focal course of treating her pneumonia and patient should stop taking this medication on 04/26/2016. Upon discharge patient should stop taking both Lasix and lisinopril. The patient presented to the hospital with a diagnosis of pneumonia. Patient is still positive for rhinovirus which is most likely the cause of the patient' s lethargy. The patient seemed to be dehydrated and also had a AK I with an elevated creatinine. The patient most likely was dehydrated secondary to the use of the Lasix and also her creatinine was increased and also due to the usage of lisinopril. Both the Lasix and lisinopril are new medications for this patient. The patient's blood pressures do seem to be well-controlled and after talking with cardiology recommendation is to continue holding her Lasix and her lisinopril at this time. The patient did well with gentle rehydration however she did become volume overloaded and a dose of Lasix needs to be given which then elevated her creatinine once again. The patient does not seem to tolerate Lasix and she should not go home with. The patient's creatinine is now back to normal with gentle hydration and she seems to be doing well. Patient should go back to [facility] for further physical therapy and rehabilitation. Patient does come from home and lives alone. Upon discharge patient should follow-up with her primary care as well as Dr. Dominguez her bag adjuster. Dr. Dominguez's office has been notified that patient has been in the hospital and are awaiting a phone call from her for follow-up appointment as an outpatient. CODE STATUS: Full PCP: residency clinic DVT prophylaxis: VTE Prophylaxis: Sub-Q Heparin (Unfractionated) Time spent Greater than 35 minutes Nicolasa Mobley DO Apr 19, 2016 11:01
[2016-04-19] MEDS: predniSONE 20 mg Tablet PO SCH (13:17)
[2016-04-20] MEDS: Heparin 5,000 Unit/mL Inj SUBQ SCH ×2 (00:39→08:22)
[2016-04-20 02:56] VITALS: BP 139/96; PULSE 90; RESP 18; O2SAT 99
--- NOTE | 2016-04-20 04:33 | NUR ---
Tele/Sleep A-fib in the 90s-100s with PVCs. Sleeping through most of shift. Continue to monitor.
[2016-04-20] MEDS: Albuterol-Ipratropium 3 mL Inhalation Solution NEB PRN (05:32)
[2016-04-20 05:33] VITALS: PULSE 90; RESP 20; O2SAT 95
[2016-04-20 06:24] VITALS: PULSE 102
[2016-04-20 08:16] VITALS: BP 132/90; PULSE 115; RESP 20; O2SAT 98
[2016-04-20] MEDS: levoFLOXacin Inj 750 MG in IV Premix 1 EACH IV SCH (08:21)
[2016-04-20] MEDS: Diltiazem CD 120 mg ER24 Capsule PO SCH (08:22)
[2016-04-20] MEDS: MeTOProlol XL 25 mg ER24 Tablet PO SCH (08:22)
[2016-04-20] MEDS: predniSONE 20 mg Tablet PO SCH (08:22)
[2016-04-20] MEDS ORDERED: 0.9% Sodium Chloride 250 ML ONE (08:25)
[2016-04-20 10:11] VITALS: PULSE 92
--- NOTE | 2016-04-20 11:10 | NUR ---
Social Work: Discharge Data & Assessment: Vice President Of Manufacturing met with patient and patient's grandson, Gio Flannery, at bedside to discuss discharge. Patient will discharge to [facility] and patient and grandson are in agreement with patient discharging to [facility]. SW spoke with Diana at [facility] and they will pick the patient up at 3pm. Plan: Patient will discharge to [facility] at 3pm via facility transport. SW will follow. Chloé Christy LMSW, QUENTIN
[2016-04-20 12:33] VITALS: BP 129/93; PULSE 96; RESP 18; O2SAT 98
--- NOTE | 2016-04-20 13:52 | PCM.DIMED ---
Discharge Instructions Date of Service Apr 20, 2016 Dates of Hospitalization Apr 15, 2016 at 21:14 Discharge Diagnosis Discharge Diagnosis Acute on Chronic CHF with Hypoxia Diet Heart Healthy Activity No restrictions (Patient may resume usual activities gradually as tolerated) Call your provider Fever or Chills, Shortness of breath, Bleeding, Chest pain, Vomitting, Excessive diarrhea, Weakness (unilateral), Other Patient Instructions Follow-up Provider: [facility] Follow-up with PCP in: 1 week Angel Ramirez MD Apr 20, 2016 13:52
[2016-04-20] MEDS ORDERED: LEVO750T9 PO (13:55)
--- NOTE | 2016-04-20 15:30 | NUR ---
Discharge Patient left unit via cabulance in a stable condition although patient did report some nausea and requested an emesis bag once in wheelchair. All vital signs stable, IV DC'd intact, tele removed, sent on 2LNC portable O2, all personal belongings taken by family who will meet patient at [facility]. Report called to Alla Ballesteros at [facility]. Body sheet completed.
--- NOTE | 2016-04-20 16:56 | PCM.DC.MED ---
Discharge Summary Date of Service Apr 20, 2016 Dates of Hospitalization Date of Hospital Admission Apr 15, 2016 at 21:14 Date of Discharge: Apr 20, 2016 Providers: Admitting Physician: Helio Mckeon MD Primary Care Physician: [place] Attending Physician: Helio Mckeon MD Diagnosis at Time of Discharge Diagnosis at Time of Discharge Acute on Chronic CHF with Hypoxia Procedures XRay, CTs & MRIs PROCEDURE: X-RAY CHEST ONE VIEW, PORTABLE ([id number]) INDICATIONS: shortness of breath TECHNIQUE: One view of the chest was acquired. COMPARISON: [facility], , XR CHEST 1VW (PORTABLE), 04/15/2016, 19: 36. FINDINGS: Surgical changes and devices: None. Lungs and pleura: Trace bilateral pleural fluid collections are noted. Cephalization of pulmonary vasculature and interstitial prominence consistent with CHF noted. Increased opacification of the left lung base which could represent atelectasis, pneumonia or aspiration. Mediastinum: Mediastinal contours appear normal. Heart size is normal. Bones and chest wall: No suspicious bony lesions. Overlying soft tissues appear unremarkable. IMPRESSION: 1. CHF. 2. Trace bilateral pleural effusions. 3. Left basilar opacification compatible with atelectasis, pneumonia or aspiration. Dictated by: Esther Foley MD, PhD on 04/16/2016 at 17:34 Approved by: Esther Foley MD, PhD on 04/16/2016 at 17:36 Other Diagnostics Date of Service: 04/15/16 1921 PROCEDURE: X-RAY CHEST ONE VIEW, PORTABLE ([id number]) INDICATIONS: SHORT OF BREATH TECHNIQUE: One view of the chest was acquired. COMPARISON: [facility], , XR CHEST 2VW, 04/04/2016, 11:09. FINDINGS: Surgical changes and devices: None. Lungs and pleura: Bilateral interstitial infiltrates. There is a small left pleural effusion with left basilar consolidation or atelectasis. No pneumothorax. Mediastinum: Mediastinal contours appear normal. Heart size is normal. Bones and chest wall: No suspicious bony lesions. Overlying soft tissues appear unremarkable. IMPRESSION: 1. Small left pleural effusion with left basilar pneumonia and/or atelectasis. 2. Bilateral diffuse interstitial infiltrates may be secondary to superimposed pulmonary edema. Recommend clinical correlation. Dictated by: Geno Pate M.D. on 04/15/2016 at 20:14 Approved by: Geno Pate M.D. on 04/15/2016 at 20:16 Brief History Patient is an 85-year-old female with history of porphyria diagnosed 30 years ago, who presented with acute on chronic SOB, acute respiratory distress, and rapid heart rate she describes as her heart beating out of her chest. She was recently admitted to [facility] on 04/04/2016 and discharged on 04/10/2016 for similar symptoms, but also had cough at that time. She was initially diagnosed with pneumonia and started on Levaquin, however blood cultures were negative flu swab was negative strep Legionella were negative. She was (+) rhinovirus. And oral antibiotics stopped. During that admission she was diagnosed with new onset A. fib and EKG, and placed on aspirin 81 mg daily, diltiazem 120 mg daily addition to metoprolol succinate 25 mg daily. Patient had echo done which showed diastolic heart failure with ejection fraction of 70- 75%, and was placed on Lasix 20 mg daily. Patient has been complaining of back pain since her initial hospitalization that she attributes to her bed. Patient denied additional signs or symptoms to include coughing, fever, sore throat, nausea, vomiting, diarrhea, constipation. Vital signs in ED: Initial pulse was 110, blood pressure 124/56, respiratory rate 32, temperature 36, pulse ox 99 on nonrebreather FiO2 of 40. Repeat Vitals were pulse 71 history rate 26, blood pressure 101/64, pulse ox 98 % on Venturi mask with 8 L Hemogram: White blood cells 12.5, hemoglobin 11.9, hematocrit 38.3, platelets 334, Chemistry panel: sodium 141, potassium 4.6, chloride 106, CO2 20, BUN 34, creatinine 1.09 (baseline creatinine on 04/04/2016 was 0.79), glucose 274, proBNP 2742, troponin 0.010 CXR 1. Small left pleural effusion with left basilar pneumonia and/or atelectasis. 2. Bilateral diffuse interstitial infiltrates may be secondary to superimposed pulmonary edema. Recommend clinical correlation. EKG: Showed A. fib/flutter rate of [address] segment or T-wave changes. Patient was evaluated in the emergency room and then admitted to the hospitalist service for further further evaluation and treatment recommendations. Hospital Course 85-year-old female with history of porphyria diagnosed 30 years ago. She has had no doctor visits over 30 years and presented with acute on chronic SOB, acute respiratory distress, and rapid heart rate she describes as her heart beating out of her chest. She was recently admitted to [facility] on 2016 and discharged on 04/10/2016 for similar symptoms in addition to a cough. Patient was admitted for acute respiratory distress and tachycardia. Acute respiratory distress and hypoxia most likely secondary to acute on chronic CHF exacerbation and acute worsening of A. fib, present on admission, active - Differential diagnosis acute exacerbation of CHF, shortness of breath secondary to A. fib, chronic deconditioning, pneumonia, - CXR Small left pleural effusion with left basilar pneumonia and/or atelectasis. 2. Bilateral diffuse interstitial infiltrates may be secondary to superimposed pulmonary edema. Recommend clinical correlation. -We treated for pneumonia as patient's procalcitonin is elevated at 0.37 in the chest x-ray does look to have a possible interstitial infiltrate -Follow up viral PCR patient is still positive for rhinovirus/enterovirus, urine is negative, influenza screen negative, blood cultures negative 24 hours - We continued supplemental oxygen to keep O2 sats greater than 92% - We ordered DuoNeb therapy as needed Acute on chronic CHF exacerbation (stabilizing) -Patient symptoms seem to be resolving we will continue to monitor -Patient has now decreased her oxygen requirements is currently on room air we will continue to monitor Left basilar pneumonia, present on admission, active - Pro calcitonin elevated at 0.37 - Blood cultures negative 2 days - Chest x-ray left basilar pneumonia versus atelectasis - We discontinued Zosyn as patient's white blood cell count is increasing to 11.9, then patient antibiotics were changed to azithromycin and Levaquin. Her azithromycin was discontinued today. - Urine currently negative for strep pneumo and legionella Acute on chronic A. fib present on admission currently rate controlled - Rate on admission was 110 - Patient heart rate currently is controlled - EKG showed A. fib/flutter rate of [address] or T-wave changes on admission -Consult PT -We will continue to monitor Acute Dehydration, present on admission, (resolving) - Patient is currently improving however will continue with gentle hydration of 250 mL bolus today at 100 mL an hour. -Continue to hold hold furosemide creatinine normalizing will restart as medically necessary for patient's CHF Acute kidney injury, present on admission, - Creatinine on admission 1.09-->0.87-->1.27-->1.13-->0.86 -Continue to hold lisinopril -Patient responded well to IV fluid resuscitation, previously we will do gentle hydration with 250 mL bolus at 100 mL an hour. 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 Normal myocardial perfusion images.2. Normal left ventricular volume and systolic function.3. The patient had 8/10 chest pain during Lexiscan infusion. No diagnostic EKG changes for ischemia. - The patient was placed on diltiazem 120 mg daily, metoprolol succinate 25 mg daily, Lasix 20 mg daily, Xeralto 20 mg daily, and lisinopril 2.5 mg daily as recommended by cardiology on discharge from last admit to 04/28/2016. - Dr. Mello medical management trainer #Diastolic CHF, grade 2, stable -New echo on 04/04/2016 Echocardiogram revealed:1. Grade 2 diastolic dysfunction. 2. EF of 70% to 75%. 3. Moderate to severe pulmonary hypertension. 4. RVSP of 65 mmHg. 5. Moderate to severe mitral regurgitation. 6. Moderate tricuspid regurgitation. Disposition: Patient is currently progressing well. Patient's white blood cell count is now down to normal at 7.5. An patient's acute kidney injury has now resolved with gentle hydration. Patient did have some wheezing today which is new for her we will start her on a five-day course of prednisone 40 mg daily patient stopped taking this medicine on 04/24/2016. Patient should continue with the azithromycin for 2 more days and her last dose of his depression should be on 04/21/2016. Patient has also been on levofloxacin for pneumonia for the last 3 days and should remain on the levofloxacin 750 mg daily for the next 7 days for focal course of treating her pneumonia and patient should stop taking this medication on 04/26/2016. Upon discharge patient should stop taking both Lasix and lisinopril. The patient presented to the hospital with a diagnosis of pneumonia. Patient is still positive for rhinovirus which is most likely the cause of the patient' s lethargy. The patient seemed to be dehydrated and also had a AK I with an elevated creatinine. The patient most likely was dehydrated secondary to the use of the Lasix and also her creatinine was increased and also due to the usage of lisinopril. Both the Lasix and lisinopril are new medications for this patient. The patient's blood pressures do seem to be well-controlled and after talking with cardiology recommendation is to continue holding her Lasix and her lisinopril at this time. The patient did well with gentle rehydration however she did become volume overloaded and a dose of Lasix needs to be given which then elevated her creatinine once again. The patient does not seem to tolerate Lasix and she should not go home with. The patient's creatinine is now back to normal with gentle hydration and she seems to be doing well. Patient should go back to [facility] for further physical therapy and rehabilitation. Patient does come from home and lives alone. Upon discharge patient should follow-up with her primary care as well as Dr. Mello her medical management trainer. Dr. Mello's office has been notified that patient has been in the hospital and are awaiting a phone call from her for follow-up appointment as an outpatient. CODE STATUS: Full PCP: [facility] DVT prophylaxis: Exam Vital Signs (Last) Date Time Temp Pulse Resp B/P Pulse Ox O2 Delivery O2 Flow Rate FiO2 04/20/16 12:33 36.4 96 18 129/93 98 Nasal Cannula 2.00 04/15/16 19:55 40 Exam General: Patient is in no apparent distress. He is lying comfortably in bed supine position with her head slightly elevated about 20. HEENT: Head is atraumatic and normocephalic. Eyes: Pupils are equally round and reactive to light and accommodation. Extraocular muscles are intact. Sclera are white, anicteric. Subconjunctival mucosa is pink. Ears and nose are unremarkable. Oropharynx: There are no mucosal lesions, there is no thrush , there is no pharyngitis. Neck: Is supple, there are no nodes, or masses or tenderness. Chest: Is clear to auscultation and percussion. There are no rales, rhonchi, wheezes or rubs. Heart: Rate is controlled, rhythm is irregular. There is no new murmur, rub or gallop. Abdomen: Good bowel sounds are present. Abdomen is soft, nontender, no organomegaly or masses were appreciated. Extremities: Are symmetrical and well perfused. There is no edema, there is no cellulitis, no rash. Neurologic: There are no focal neurological deficits. Cranial nerves II through XII are intact. There are no sensory or motor deficits. Psychiatric: Patients mood is calm and shows no sign of agitation. Genital: Deferred Rectal: Deferred Test 04/15/16 19:20 04/15/16 23:19 04/16/16 02:35 04/16/16 16:41 Hold Flores Top Tube Received (Received) Urine Color Yellow (YELLOW) Urine Appearance Slightly cloudy Urine pH 5.0 (5.0-8.0) Urine Specific [place] 1.025 (1.003-1.035) Urine Protein Negativemg/dL (NEG,TRACE) Urine Glucose (UA) Negativemg/dL (NEGATIVE) Urine Ketones Negativemg/dL (NEGATIVE) Urine Occult Blood Negative (NEGATIVE) Urine Nitrite Negative (NEGATIVE) Urine Bilirubin Negative (NEGATIVE) Urine Urobilinogen Normalmg/dL (NORMAL) Urine Leukocyte Esterase Moderate (NEGATIVE) Urine RBC 0-2/hpf (0-2) Urine WBC 6-10/hpf (0-5) Urine Epithelial Cells Few/hpf (NONE-MOD) Urine Crystals None seen (NONE SEEN) Urine Bacteria Moderate/hpf (NONE-FEW) Urine Hyaline Casts None/lpf (NONE) Urine Granular Casts None seen (NONE SEEN) Urine Waxy Casts None seen (NONE SEEN) Urine Red Blood Cell Casts None seen (NONE SEEN) Urine White Blood Cell Casts None seen (NONE SEEN) Urine Mucus None seen (None Seen) Urine Trichomonas None seen (NONE SEEN) Urine Yeast None (NONE SEEN) Urinalysis Comment None Urine Culture Reflexed Indicated Neutrophils (%) (Auto) 77.7% (40-74) Lymphocytes (%) (Auto) 13.8% (14-46) Monocytes (%) (Auto) 7.6% (4-12) Eosinophils (%) (Auto) 0.4% (0-5) Basophils (%) (Auto) 0.2% (0-3) Hemoglobin A1c 5.8% (4.8-5.6) Lactic Acid Level 1.4mmol/L (0.4-2.0) Pro-B-Type Natriuretic Peptide 2117pg/mL (0-738) Troponin T < 0.010ug/L (0.0-0.011) Test 04/17/16 15:20 04/18/16 04:00 04/20/16 02:52 Urine Legionella pneumophilia Ag Negative (Negative) Total Bilirubin 0.7mg/dL (0.0-1.2) Aspartate Amino Transf (AST/SGOT) 20U/L (0-50) Alanine Aminotransferase (ALT/SGPT) 22U/L (0-32) Alkaline Phosphatase 62U/L (25-165) Total Protein 5.8g/dL (6.4-8.4) Albumin 2.9g/dL (3.4-5.0) Procalcitonin 1.07ng/mL (0.00-0.08) White Blood Count 5.6th/mm3 (3.8-10.1) Red Blood Count 3.54mil/mm3 (3.90-5.20) Hemoglobin 9.9g/dL (12.0-15.6) Hematocrit 31.5% (35.0-46.0) Mean Corpuscular Volume 89.0fL (81-100) Mean Corpuscular Hemoglobin 28.0pg (27.0-35.0) Mean Corpuscular Hemoglobin Concent 31.4% (32.0-37.0) Red Cell Distribution Width 14.8% (12.3-15.4) Platelet Count 249bil/L (150-400) Sodium Level 139mEq/L (134-144) Potassium Level 5.1mEq/L (3.5-5.2) Chloride Level 106mEq/L (97-108) Carbon Dioxide Level 19mmol/L (18-29) Blood Urea Nitrogen 32mg/dL (8-27) Creatinine 0.86mg/dL (0.57-1.00) Estimat Glomerular Filtration Rate 90mL/min (>59) Glucose Level 134mg/dL (60-99) Calcium Level 8.6mg/dL (8.5-10.1) Discharge Medications Discharge Medications Aspirin Chew (Aspirin Chew) 81 Mg Chew 81 MG PO DAILY Prescribed by: JUDAH WOLF DO Diltiazem ER (Cardizem CD) 120 Mg Cap.er.24h 120 MG PO DAILY Prescribed by: JUDAH WOLF DO Levofloxacin (Levaquin) 750 Mg Tablet 750 MG PO DAILY Prescribed by: PEE RAMIREZ MD Metoprolol Succinate ER (Metoprolol Succinate ER) 25 Mg Tab.er.24h 25 MG PO DAILY Prescribed by: JUDAH WOLF DO As needed Acetaminophen (Acetaminophen) 325 Mg Tablet 650 MG PO Q4H PRN PRN For Fever ( Reported) Followup Plan Disposition: Patient is being discharged to [facility]. Discharge Diet: Heart Healthy Discharge Activity: No restrictions (Patient may resume usual activities gradually as tolerated) Follow-up Provider: [facility] Follow-up with PCP in: 1 week Provider: Aaron Mello MD Follow-up in: 2 weeks Time spent Time spent on discharging this patient was greater than 35 minutes, over half of which was involved in counseling and coordination of care. Angel Ramirez MD Apr 20, 2016 16:56
== END 2016-04-20 15:14 | DRG 291 ==
LOC: SED 19:03 → PCC 21:14
PROVIDERS: ADMIT Hospitalist; ATTEND Hospitalist
PROC: 4A033R1 Measurement of Arterial Saturation, Peripheral, Percutaneous Approach (ICD-10-PCS; principal; 2016-04-15)
DX: I50.33 Acute on chronic diastolic (congestive) heart failure (principal); J18.9 Pneumonia, unspecified organism; N17.9 Acute kidney failure, unspecified; E80.21 Acute intermittent (hepatic) porphyria; J90 Pleural effusion, not elsewhere classified; E86.0 Dehydration; I10 Essential (primary) hypertension; Z87.891 Personal history of nicotine dependence; I48.91 Unspecified atrial fibrillation; R73.9 Hyperglycemia, unspecified